=== PATIENT | male | born 1985 | race Caucasian/White ===

== ENCOUNTER 2024-09-04 05:14 | Inpatient (IN) | payer OTHER, SELFPAY ==
[2024-09-04] VITALS (8 sets, daily range): BP systolic 103–118; BP diastolic 67–81; PULSE 66–90; RESP 12–19; TEMP 36.6–37.4; O2SAT 95–97; BMI 32.1
--- NOTE | ~2024-09-04 | CT_ITS ---
CT of the Abdomen and Pelvis: Indication: Abdominal pain Technique: 2.5 mm axial scans were obtained through the abdomen and pelvis following intravenous adm inistration of 100 cc of Omnipaque 350. Dose reduction technique was used on this scan by utilizing a utomated exposure control and iterative reconstruction technique. The dose-length product (DLP) was 1 396.16 mGy-cm. Findings: Scans through the lung bases are unremarkable. The liver, spleen, pancreas, gallbladder, adrenals and kidneys are within normal limits. No evidence of aortic aneurysm. No lymphadenopathy. There is wall thickening and inflammatory change of the sigmoid colon, compatible with acute divertic ulitis. Possible tiny microperforation versus mildly prominent diverticulum. No abscess evident. No b owel obstruction. Images through the pelvis were performed. Urinary bladder unremarkable. No pelvic mass seen. No ascit es. Impression: Acute sigmoid diverticulitis with possible contained microperforation adjacent to the colon versus mi ld prominent diverticulum. No abscess. Reviewed, dictated and finalized at [facility]. 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 No abscess.
--- NOTE | 2024-09-04 05:49 | ED.GENADULT ---
HPI - General Adult General Chief complaint: Abdominal Pain Stated complaint: Lower abdominal pain Time Seen by Provider: 09/04/24 05:37 History of Present Illness HPI narrative: Patient 38 and 1 presents emergency department with chief complaint of abdominal pain. Patient reports the pain began yesterday reports some lower quadrants of his abdomen the patient reports feels like a cramping like pain in sharp as well the patient denies nausea denies vomiting denies diarrhea reports no prior surgical history of the abdomen the patient reports no other medical conditions. Related Data Home Medications Medication Instructions Recorded Confirmed acetaminophen 325 mg capsule 325 mg PO Q6H PRN 11/12/19 (Tylenol) ibuprofen 200 mg tablet (Advil) 200 mg PO Q6H PRN 11/12/19 Allergies Allergy/AdvReac Type Severity Reaction Status Date / Time No Known Allergies Allergy Unverified 01/20/20 12:16 Review of Systems Review of Systems: A 10 system review of systems was completed on the patient and is negative except for what is stated in the HPI. Nursing and ancillary documentation was reviewed. [facility] Past Medical History Medical History Broken arm Broken legs Chronic pain Hypertriglyceridemia Family History Family History Mother Patient's mother is in good health Father Patient's father is in good health Social History Social History Smoking packs per day: 1 Smoking cigarettes per day: 20.0 Smoking status: Current every day smoker Second hand tobacco smoke exposure: No Alcohol intake: never Substance use: never Exam Narrative: GENERAL: Well-appearing, well-nourished, and in no acute distress. HEAD: Normocephalic, atraumatic. EYES: PERRLA and EOMI. ENT: Nares clear, no rhinorrhea or epistaxis. Mucous membranes moist. NECK: Supple. CHEST: Clear to auscultation. No respiratory distress. HEART: Regular rate and rhythm. No murmur heard. Normal peripheral pulses. ABDOMEN: Soft, Tenderness to palpation in bilateral lower quadrants, nondistended, normal active bowel sounds. EXTREMITIES: Normal range of motion. No edema. SKIN: Warm, dry, no rash. NEURO: No focal deficits. Alert and oriented x3. PSYCH: Normal mood and affect. Course Vital Signs Vital signs: Vital Signs Temperature 36.6 C 09/04/24 05:28 Pulse Rate 72 09/04/24 05:28 Respiratory Rate 12 09/04/24 05:28 Blood Pressure 118/81 09/04/24 05:28 Pulse Oximetry 97 09/04/24 05:28 Oxygen Delivery Room Air 09/04/24 05:28 Temperature 36.6 C 09/04/24 05:28 Pulse Rate 72 09/04/24 05:28 Respiratory Rate 12 09/04/24 05:28 Blood Pressure 118/81 09/04/24 05:28 Pulse Oximetry 97 09/04/24 05:28 Oxygen Delivery Room Air 09/04/24 05:28 Medical Decision Making MDM Narrative Medical decision making narrative: differential diagnosis includes intra-abdominal infection, diverticulitis, colitis, appendicitis CT scan of the abdomen pelvis showed evidence of acute diverticulitis with potential localized perforation laboratory studies showed a white count of 16.8 electrolytes are within normal limits case was discussed with Dr. Carey who will consult on the patient and the patient is be kept NPO Vital Signs Vital Signs: Vital Signs Temperature 36.6 C 09/04/24 05:28 Pulse Rate 72 09/04/24 05:28 Respiratory Rate 12 09/04/24 05:28 Blood Pressure 118/81 09/04/24 05:28 Pulse Oximetry 97 09/04/24 05:28 Oxygen Delivery Room Air 09/04/24 05:28 Temperature 36.6 C 09/04/24 05:28 Pulse Rate 72 09/04/24 05:28 Respiratory Rate 12 09/04/24 05:28 Blood Pressure 118/81 09/04/24 05:28 Pulse Oximetry 97 09/04/24 05:28 Oxygen Delivery Room Air 09/04/24 05:28 Lab Data 09/04/24 05:42 09/04/24 05:42 Labs: Lab Results 09/04/24 Range/Units 05:42 WBC 16.8 H (4.5-10.0) K/mm3 RBC 5.30 (4.6-6.20) M/mm3 Hgb 16.3 (14.0-18.0) g/dL Hct 45.9 (42.0-52.0) % MCV 86.6 (80-100) fl MCH 30.8 (26-34) pg MCHC 35.5 (32-36) g/dl RDW 12.2 (11.5-14.5) % Plt Count 249 (150-375) k/mm3 MPV 10.3 (7.4-10.4) fl Immature Gran % (Auto) 0.4 (0-0.5) % Neut % (Auto) 77.9 H (45.5-73.1) % Lymph % (Auto) 12.1 L (18.3-44.2) % [place] % (Auto) 9.0 H (2.6-8.5) % Eos % (Auto) 0.1 (0-4.4) % Baso % (Auto) 0.5 (0.2-1.2) % Lymph # (Auto) 2.02 (0.9-3.2) K/mm3 [place] # (Auto) 1.5 H (0.1-0.6) K/mm3 Eos # (Auto) 0.0 (0-0.3) K/mm3 Baso # (Auto) 0.1 (0.0-0.1) K/mm3 Abs Immat Gran (auto) 0.06 H (0.00-0.031) K/mm3 Absolute Neuts (auto) 13.1 H (1.3-6.7) K/mm3 Absolute Nucleated RBC 0.000 (0.0-0.012) K/mm3 Nucleated RBC % 0.0 (0.0-0.2) % Sodium 139 (137-145) mmol/L Potassium 4.0 (3.4-5.0) mmol/L Chloride 103 (98-107) mmol/L Carbon Dioxide 25 (22-30) mmol/L Anion Gap 11 (4-12) mmol/L BUN 14 (9-20) mg/dL Creatinine 0.80 (0.7-1.3) mg/dL Estim Creat Clear Calc 145 ml/min Estimated GFR > 60 (59 - ) Glucose 120 H (65-110) mg/dL Calcium 9.4 (8.4-10.2) mg/dL Total Bilirubin 1.4 H (0.2-1.3) mg/dL AST 23 (17-59) U/L ALT 34 (6-50) U/L Alkaline Phosphatase 71 (38-126) U/L Total Protein 9.0 H (6.3-8.2) g/dL Albumin 5.0 (3.5-5.1) g/dL Lipase 35 (23-300) U/L Urine Color Yellow (Yellow) Urine Appearance Clear (Clear) Urine pH 5.0 (5.0-9.0) Ur Specific [place] 1.026 (1.001-1.035) Urine Protein Trace (Negative) mg/dL Urine Glucose (UA) Negative (Negative) mg/dL Urine Ketones Trace H (Negative) mg/dL Ur Blood (Man) Trace (Negative) Urine Nitrate Negative (Negative) Urine Bilirubin Negative (Negative) Urine Urobilinogen 1.0 (<2.0) mg/dL Leukocyte Esterase Rfl Negative (Negative) DIANNE/UL Urine RBC 0-2 (0-2) /hpf Urine WBC 0-5 (0-3) /hpf Ur Squamous Epith Cells Occasional (Few) /hpf Urine Bacteria None seen /hpf Urine Casts 0-2 Discharge Plan Discharge Clinical Impression: Acute diverticulitis Patient Disposition: Still a Patient Condition: Stable Instructions: Antibiotic Form Prescriptions: No Action acetaminophen [Tylenol] 325 mg capsule 325 mg PO Q6H PRN ibuprofen [Advil] 200 mg tablet 200 mg PO Q6H PRN fluticasone propionate [Flonase Allergy Relief] 50 mcg/actuation spray,suspension 1 spray NASAL Q12H Qty: 18.2 1RF Rx Instructions: administer into each nostril Follow-up/Referrals: Chris Grace DO [Primary Care Provider] - Time of Disposition: 06:58
[2024-09-04 05:58] LABS: Basophils Absolute Auto 0.1 K/mm3 (0.0-0.1); Basophils Percent Auto 0.5 % (0.2-1.2); Eosinophils Percent Auto 0.1 % (0-4.4); Hematocrit 45.9 % (42.0-52.0); Hemoglobin 16.3 g/dL (14.0-18.0); Immature Granulocyte Absolute 0.06 K/mm3 (0.00-0.031); Immature Granulocyte Percent A 0.4 % (0-0.5); Lymphocytes Absolute Auto 2.02 K/mm3 (0.9-3.2); Lymphocytes Percent Auto 12.1 % (18.3-44.2); Mean Corpuscular HGB Conc 35.5 g/dl (32-36); Mean Corpuscular Hemoglobin 30.8 pg (26-34); Mean Corpuscular Volume 86.6 fl (80-100); Mean Platelet Volume 10.3 fl (7.4-10.4); Monocytes Absolute Auto 1.5 K/mm3 (0.1-0.6); Neutrophils Absolute Auto 13.1 K/mm3 (1.3-6.7); Neutrophils Percent Auto 77.9 % (45.5-73.1); Platelet Count Result 249 k/mm3 (150-375); Red Cell Distribution Width 12.2 % (11.5-14.5); White Blood Count 16.8 K/mm3 (4.5-10.0)
[2024-09-04 06:02] LABS: Add Urine Microscopic? YES; Appearance Urine Clear (Clear); Bacteria Urine None Seen /hpf; Bilirubin Urine Negative (Negative); Blood Urine Trace (Negative); Color Urine Yellow (Yellow); Glucose Urine UA Negative (Negative); Ketones Urine Trace mg/dL (Negative); Leukocyte Esterase Ur Negative LEU/UL (Negative); Nitrate Urine Negative (Negative); Non Pathogenic Casts 0-2; Protein Urine Trace mg/dL (Negative); RBC Urine 0-2 /hpf (0-2); Specific Grav Ur 1.026 (1.001-1.035); Squamous Epithelial Cell Urine Occasional /hpf (Few); WBC Urine 0-5 /hpf (0-3)
[2024-09-04 06:13] LABS: Alanine Aminotransferase 34 U/L (6-50); Alkaline Phosphatase 71 U/L (38-126); Anion Gap 11 mmol/L (4-12); Aspartate Amino Transferase 23 U/L (17-59); Bilirubin,Total 1.4 mg/dL (0.2-1.3); Blood Urea Nitrogen 14 mg/dL (9-20); Calcium 9.4 mg/dL (8.4-10.2); Carbon Dioxide 25 mmol/L (22-30); Chloride 103 mmol/L (98-107); Estimated CRCL calculation 145 ml/min; Estimated Glomerular Filt Rate > 60; Glucose 120 mg/dL (65-110); Lipase 35 U/L (23-300); Sodium 139 mmol/L (137-145)
[2024-09-04] MEDS: PIPERACILLN/TAZ 3.375GM/NS50ML 3.375 GM/50 ML BAG IVPB ×4 (07:39→23:35)
--- NOTE | 2024-09-04 08:49 | P.HP_ITS ---
H&P: HPI History of Present Illness Date/Time: 09/04/24 08:49 Chief Complaint: ABDOMEN PAIN Narrative: [age] years old gentleman without significant past medical history present ED with a chief complaint of abdomen pain. Patient started having acute abdomen pain yesterday, locating in left lower quadrant, is cramping pain. Patient denies nausea vomiting diarrhea. Patient also denies fever, chills, chest pain, cough, shortness of breath, headache, focal weakness. Patient came to ED for evaluation treatment. Upon arrival to ED, patient is afebrile, blood pressure stable, no O2 desaturation on room air. Labs showed leukocytosis white blood cell 16,800. Chemistry unremarkable. CT abdomen pelvis showed acute sigmoid diverticulitis with possible microperforation. Patient received Zosyn in the ED, your physician also consulted general surgeon. We admit patient for further evaluation and management Review of Systems Review of Systems: ROS negative except above PMFSH Past Medical History Medical History Broken arm Broken legs Chronic pain Hypertriglyceridemia Family History Family History Mother Patient's mother is in good health Father Patient's father is in good health Social History Social History Smoking packs per day: 1 Smoking cigarettes per day: 20.0 Smoking status: Current every day smoker Second hand tobacco smoke exposure: No Alcohol intake: never Substance use: never Do You Feel Safe in your Home?: Yes Lack of Transportation: No Lack of Food: Never True Current Housing: I Have Housing Concerned About Future Housing: No Difficulty Paying Gas/Electric Bills: No Difficulty Paying for Meds: No Currently Unemployed: No Education: Trade/Vocational Certificate Difficulty w/ Childcare or Family Care: No Spiritual care concerns: No Meds Home Medications and Allergies Home Medications Medication Instructions Recorded Confirmed Type acetaminophen 325 mg capsule 325 mg PO Q6H PRN pain 11/12/19 09/04/24 History (Tylenol) ibuprofen 200 mg tablet (Advil) 200 mg PO Q6H PRN pain 11/12/19 09/04/24 History fluticasone propionate 50 1 spray intranasal Q12H #18.2 mL 05/13/20 09/04/24 Rx mcg/actuation nasal spray,suspension (Flonase Allergy Relief) Allergies Allergy/AdvReac Type Severity Reaction Status Date / Time No Known Allergies Allergy Unverified 01/20/20 12:16 Vital Signs Vital Signs - 24 hr 09/04/24 05:28 09/04/24 07:46 09/04/24 07:46 Temperature 97.8 F Pulse Rate 72 83 Respiratory Rate 12 16 Blood Pressure 118/81 109/70 109/70 Pulse Oximetry 97 96 96 Oxygen Delivery Room Air 09/04/24 07:47 09/04/24 08:00 09/04/24 08:15 Temperature Pulse Rate 90 Respiratory Rate 15 Blood Pressure Pulse Oximetry 96 95 96 Oxygen Delivery Exam Narrative: GENERAL: Pleasant, in no acute distress. Well-nourished. - EYES: EOMI. Anicteric. - HENT: Moist mucous membranes. - LUNGS: Clear to auscultation bilateral ly, no wheezing, rhonchi, or rales. - CARDIOVASCULAR: Regular rate and rhyth m. No murmur. No JVD. - ABDOMEN: Soft, left lower quadrant te nder and non-distended. No palpable masses. - EXTREMITIES: No edema. Peripheral puls es 2+. Non-tender. - NEUROLOGIC: No focal neurological defi cits. CN II-XII grossly intact. - PSYCHIATRIC: Awake, Alert and oriented x 3. Appropriate mood and affect. - SKIN: No rashes or lesions. Warm. - LYMPH: No cervical lymphadenopathy. H&P: Results Labs Labs: Short CBC 09/04/24 Range/Units 05:42 WBC 16.8 H (4.5-10.0) K/mm3 Hgb 16.3 (14.0-18.0) g/dL Hct 45.9 (42.0-52.0) % Plt Count 249 (150-375) k/mm3 [facility] 09/04/24 05:42 Sodium 139 Potassium 4.0 Chloride 103 Carbon Dioxide 25 BUN 14 Creatinine 0.80 Glucose 120 H Calcium 9.4 Liver Function 09/04/24 Range/Units 05:42 Total Bilirubin 1.4 H (0.2-1.3) mg/dL AST 23 (17-59) U/L ALT 34 (6-50) U/L Alkaline Phosphatase 71 (38-126) U/L Albumin 5.0 (3.5-5.1) g/dL Urine 09/04/24 Range/Units 05:42 Urine Color Yellow (Yellow) Urine Appearance Clear (Clear) Urine pH 5.0 (5.0-9.0) Ur Specific [place] 1.026 (1.001-1.035) Urine Protein Trace (Negative) mg/dL Urine Glucose (UA) Negative (Negative) mg/dL Assessment and Plan Assessment and plan (1) Acute diverticulitis: Code(s): K57.92 - Diverticulitis of intestine, part unspecified, without perforation or abscess without bleeding Status: Acute Plan Acute sigmoid diverticulitis with microperforation Patient has been having left lower quadrant pain since yesterday. Patient has sudden onset abdomen pain, denies nausea vomiting Patient has leukocytosis CT abdomen pelvis showed acute sigmoid diverticulitis with micro perforation Keep patient p.o. Start D5 lactated Ringer 125 mL/hour Received Zosyn in the ED, continue Zosyn IV Consult general surgeon, follow recommendation Optimize pain management Follow-up CBC BMP, correct electrolyte abnormality accordingly Hospitalist MIPS Advance Care Plan I have confirmed that the patient's Advanced Care Plan is present, code status is documented, or surrogate decision maker is listed in patient medical record.: Yes Medication Reconciliation I have utilized all available resources to obtain, update and review the patients current medications (includes all prescriptions, OTC, herbals, cannabis, and nutritional supplements).: Yes
--- NOTE | 2024-09-04 10:46 | ADMGEN ---
This patient, Trip Flores, was admitted to [facility] Surg Room 315-01. Patient/family oriented to hospital policies and general routines including ID bracelet, bed and alarms, visiting hours, pain management, procedures, bathroom and other care routines, personal items, smoking policy, room service/diet, and visiting hours. Information on how to activate the Rapid Response Team has been discussed. Patient/Family are encouraged to report perceived risks to care and to ask questions if they do not understand what they are told or what they should do.
--- NOTE | 2024-09-04 12:10 | WPDCN ---
Assessment and Plan Assessment and plan (1) Acute diverticulitis: Code(s): K57.92 - Diverticulitis of intestine, part unspecified, without perforation or abscess without bleeding Status: Acute Assessment and Plan: Acute sigmoid diverticulitis with micro perforation. There is no pelvic abscess. This is 1st episode of diverticulitis. Patient will likely improve with IV antibiotic therapy and relative bowel rest for couple days. He does not have acute surgical abdomen. Soon he does get better with non operative management I would recommend he get a colonoscopy done and about 4 to 6 weeks to make sure there is no underlying neoplasm causing the inflammation of the colon and micro perforation. Continue supportive management. Continue IV antibiotics. Repeat CBC tomorrow. HPI Data of Consult Date/Time: 09/04/24 12:10 Requesting Physician: Marissa Myers MD Primary Care Provider: Chris Grace, Consult Narrative Reason for consult: Acute sigmoid diverticulitis with micro perforation Narrative: Trip Flores is a 38 year old male admitted to the hospital with a 12hour history of sudden onset of lower abdominal pain. Small bowel movement yesterday. He never had pain like this in the past. Workup in the emergency room with a CT scan abdomen pelvis showed acute sigmoid diverticulitis with possible microperforation. No pelvic abscess was seen. White blood count was 16,000. He was not tachycardic and not febrile. He has never had a colonoscopy in the past. He did have a THD procedure done in 2018 for symptomatic hemorrhoids which I did here at [facility]. He has never had colonoscopy in the past. Today his pain is a little better. He is has no nausea or vomiting. Review of Systems Review of Systems: The remainder of the review of systems to include constitutional, HEENT, cardiovascular, respiratory, GI, , integumentary, musculoskeletal, endocrine, immunologic, hematologic, psychiatric, and neurologic are all negative except for which is mentioned above in the HPI. [facility] Past Medical History Medical History Broken arm Broken legs Chronic pain Hypertriglyceridemia Family History Family History Mother Patient's mother is in good health Father Patient's father is in good health Social History Social History Smoking packs per day: 1 Smoking cigarettes per day: 20.0 Smoking status: Current every day smoker Second hand tobacco smoke exposure: No Alcohol intake: never Substance use: never Do You Feel Safe in your Home?: Yes Lack of Transportation: No Lack of Food: Never True Current Housing: I Have Housing Concerned About Future Housing: No Difficulty Paying Gas/Electric Bills: No Difficulty Paying for Meds: No Currently Unemployed: No Education: Trade/Vocational Certificate Difficulty w/ Childcare or Family Care: No Spiritual care concerns: No Meds Home Medications and Allergies Home Medications Medication Instructions Recorded Confirmed Type acetaminophen 325 mg capsule 325 mg PO Q6H PRN pain 11/12/19 09/04/24 History (Tylenol) ibuprofen 200 mg tablet (Advil) 200 mg PO Q6H PRN pain 11/12/19 09/04/24 History fluticasone propionate 50 1 spray intranasal Q12H #18.2 mL 05/13/20 09/04/24 Rx mcg/actuation nasal spray,suspension (Flonase Allergy Relief) Allergies Allergy/AdvReac Type Severity Reaction Status Date / Time No Known Allergies Allergy Unverified 01/20/20 12:16 Vital Signs Vital Signs - 24 hr 09/04/24 05:28 09/04/24 07:46 09/04/24 07:46 Temperature 36.6 C Pulse Rate 72 83 Respiratory Rate 12 16 Blood Pressure 118/81 109/70 109/70 Pulse Oximetry 97 96 96 Oxygen Delivery Room Air 09/04/24 07:47 09/04/24 08:00 09/04/24 08:15 Temperature Pulse Rate 90 Respiratory Rate 15 Blood Pressure Pulse Oximetry 96 95 96 Oxygen Delivery Exam Const: General: comfortable and no acute distress HENMT: Ears: TM's normal bilaterally Face/Nose/Sinus: Normal nares present Mouth: Yes moist mucous membranes Eyes: General: appearance normal, both eyes and all related structures Sclera: sclerae normal Pupils: Equal, round and reactive pupils present EOM: EOMs intact bilaterally Neck: Neck: supple and no JVD Resp: Effort & Inspection: normal respiratory effort Auscultation: clear to auscultation bilaterally Cardio: Rate: regular rate Rhythm: regular rhythm GI: Other: Abdomen is soft and nondistended. Has a very small umbilical hernia which is easily reducible. Defect is less than 1cm in diameter. He also has mild tenderness to palpation in the suprapubic region of the abdomen. There is no rebound tenderness or guarding. No masses appreciated. Skin: General skin exam: normal color and no rashes or lesions noted Neuro: General: gait normal Speech: normal speech Motor exam (neuro): 5/5 motor strength present throughout Sensory Exam: normal sensation Extrem: General: normal to inspection Psych: Mental Status: mental status grossly normal Affect: normal affect Results Labs 09/04/24 05:42 09/04/24 05:42 Labs: Short CBC 09/04/24 Range/Units 05:42 WBC 16.8 H (4.5-10.0) K/mm3 Hgb 16.3 (14.0-18.0) g/dL Hct 45.9 (42.0-52.0) % Plt Count 249 (150-375) k/mm3 BMP 09/04/24 05:42 Sodium 139 Potassium 4.0 Chloride 103 Carbon Dioxide 25 BUN 14 Creatinine 0.80 Glucose 120 H Calcium 9.4 Liver Function 09/04/24 Range/Units 05:42 Total Bilirubin 1.4 H (0.2-1.3) mg/dL AST 23 (17-59) U/L ALT 34 (6-50) U/L Alkaline Phosphatase 71 (38-126) U/L Albumin 5.0 (3.5-5.1) g/dL Urine 09/04/24 Range/Units 05:42 Urine Color Yellow (Yellow) Urine Appearance Clear (Clear) Urine pH 5.0 (5.0-9.0) Ur Specific [place] 1.026 (1.001-1.035) Urine Protein Trace (Negative) mg/dL Urine Glucose (UA) Negative (Negative) mg/dL Imaging Radiologist's impression: Patient: Trip Flores : 1985 MR#: [id number] Age: 38 Acct:[id number] Loc: [facility] ADM Date: 09/04/24Attending Dr: Ordering Physician: Royer Hensley MD Date of Service: 09/04/24 Procedure(s): CT abdomen pelvis w con Accession Number(s): [id number] cc: Royer Hensley MD; Chris Grace DO~ CT of the Abdomen and Pelvis: Indication: Abdominal pain Technique: 2.5 mm axial scans were obtained through the abdomen and pelvis following intravenous administration of 100 cc of Omnipaque 350. Dose reduction technique was used on this scan by utilizing automated exposure control and iterative reconstruction technique. The dose-length product (DLP) was 1396.16 mGy-cm. Findings: Scans through the lung bases are unremarkable. The liver, spleen, pancreas, gallbladder, adrenals and kidneys are within normal limits. No evidence of aortic aneurysm. No lymphadenopathy. There is wall thickening and inflammatory change of the sigmoid colon, compatible with acute diverticulitis. Possible tiny microperforation versus mildly prominent diverticulum. No abscess evident. No bowel obstruction. Images through the pelvis were performed. Urinary bladder unremarkable. No pelvic mass seen. No ascites. Impression: Acute sigmoid diverticulitis with possible contained microperforation adjacent to the colon versus mild prominent diverticulum. No abscess. Reviewed, dictated and finalized at [facility]. [employer]
[2024-09-04] MEDS: LACTATED RINGERS 1,000 ML 125 ML IV CONT (12:55)
[2024-09-04] MEDS: MORPHINE SULFATE (*CRX) 4 MG/ML INJ IV PUSH (12:55)
[2024-09-04] MEDS: DEXTROSE 5%/LACTATED RINGERS 1,000 ML 125 ML IV CONT (17:21)
[2024-09-04] MEDS: ONDANSETRON INJ 4 MG/2 ML VIAL IV PUSH (17:26)
[2024-09-05] MEDS: DEXTROSE 5%/LACTATED RINGERS 1,000 ML 125 ML IV CONT ×2 (05:19→11:10)
[2024-09-05] MEDS: PIPERACILLN/TAZ 3.375GM/NS50ML 3.375 GM/50 ML BAG IVPB ×3 (05:19→17:20)
[2024-09-05 05:47] VITALS: BP 110/78; PULSE 80; RESP 16; TEMP 36.9; O2SAT 96
[2024-09-05 08:44] LABS: Basophils Absolute Auto 0.1 K/mm3 (0.0-0.1); Basophils Percent Auto 0.8 % (0.2-1.2); Eosinophils Absolute Auto 0.1 K/mm3 (0-0.3); Eosinophils Percent Auto 1.1 % (0-4.4); Hematocrit 44.2 % (42.0-52.0); Hemoglobin 15.3 g/dL (14.0-18.0); Immature Granulocyte Absolute 0.04 K/mm3 (0.00-0.031); Immature Granulocyte Percent A 0.4 % (0-0.5); Lymphocytes Absolute Auto 1.93 K/mm3 (0.9-3.2); Lymphocytes Percent Auto 17.4 % (18.3-44.2); Mean Corpuscular HGB Conc 34.6 g/dl (32-36); Mean Corpuscular Hemoglobin 30.7 pg (26-34); Mean Corpuscular Volume 88.6 fl (80-100); Mean Platelet Volume 9.9 fl (7.4-10.4); Monocytes Absolute Auto 1.3 K/mm3 (0.1-0.6); Monocytes Percent Auto 11.3 % (2.6-8.5); Neutrophils Absolute Auto 7.7 K/mm3 (1.3-6.7); Platelet Count Result 225 k/mm3 (150-375); Red Blood Count 4.99 M/mm3 (4.6-6.20); Red Cell Distribution Width 12.2 % (11.5-14.5); White Blood Count 11.1 K/mm3 (4.5-10.0)
[2024-09-05 08:47] VITALS: O2SAT 96
[2024-09-05 08:55] LABS: Anion Gap 7 mmol/L (4-12); Blood Urea Nitrogen 9 mg/dL (9-20); Calcium 9.2 mg/dL (8.4-10.2); Carbon Dioxide 32 mmol/L (22-30); Chloride 99 mmol/L (98-107); Estimated CRCL calculation 164 ml/min; Estimated Glomerular Filt Rate > 60; Glucose 116 mg/dL (65-110); Potassium 4.3 mmol/L (3.4-5.0); Sodium 138 mmol/L (137-145)
--- NOTE | 2024-09-05 10:52 | WPDPN ---
Progress Note: A&P Assessment and Plan (1) Acute diverticulitis: Code(s): K57.92 - Diverticulitis of intestine, part unspecified, without perforation or abscess without bleeding Status: Acute Assessment and Plan: Improving with non operative management with IV antibiotics and NPO. His white blood count is down to 11,000 today and his abdominal exam is much improved. We will go ahead start him on some clear liquids today. Continue with IV antibiotics for now. Hopefully can advance his diet further tomorrow and probably home this weekend with a additional course of oral antibiotics at home. He has responded non operative management and I do not think he is going to need any acute surgical management at this time. Subjective Date/time seen: 09/05/24 10:52 Interval history: Patient feels better today. Less lower abdominal pain. No nausea or vomiting. He is passing some flatus but had no bowel movement yet. [place] blood count was [address] yesterday. Is down to 11,000 today. No fever or tachycardia. Exam GI: Other: Abdomen is soft and nondistended. Mild tenderness to palpation the suprapubic region abdomen. No guarding or rebound tenderness. Objective Data Vital Signs Vital Signs: Vital Signs - 24 hr 09/04/24 14:00 09/04/24 15:03 09/04/24 20:40 Temperature 37.4 C 37.4 C Pulse Rate 81 81 Respiratory Rate 16 16 Blood Pressure 103/67 110/75 Pulse Oximetry 96 97 Oxygen Delivery Room Air Fraction of Inspired Oxygen 09/04/24 20:00 09/04/24 22:55 09/05/24 05:47 Temperature 36.9 C Pulse Rate 66 80 Respiratory Rate 19 16 Blood Pressure 110/78 Pulse Oximetry 95 96 Oxygen Delivery Room Air CPAP Fraction of Inspired Oxygen 09/05/24 08:47 09/05/24 08:10 Temperature Pulse Rate Respiratory Rate Blood Pressure Pulse Oximetry 96 Oxygen Delivery Room Air Room Air Fraction of Inspired Oxygen 21 Intake/Output Intake/Output: Intake & Output 09/02/24 09/03/24 09/04/24 09/05/24 23:59 23:59 23:59 23:59 Intake Total 150 2110 Balance 150 2110 Meds/Results Medications: Active Medications Generic Name Dose Route Start Last Admin Trade Name Freq PRN Reason Stop Dose Admin Piperacillin/Tazobactam/Dextrose 3.375 gm in 50 mls @ 100 mls/hr 09/04/24 12:00 09/05/24 05:19 Zosyn 3.375 Gm/Ns 50 Ml IVPB 100 mls/hr Q6H TOMMIE Administration Dextrose/Lactated Ringer's 1,000 mls @ 125 mls/hr 09/04/24 09:00 09/05/24 05:19 Dextrose 5%/Lactated Ringers IV CONT 125 mls/hr .Q8H TOMMIE Administration Morphine Sulfate 4 mg 09/04/24 07:17 09/04/24 12:55 Morphine Sulfate (*Crx) 4 Mg/Ml Inj IV PUSH 4 mg Q2H PRN Administration Pain Rated 7-10 Ondansetron HCl 4 mg 09/04/24 07:17 09/04/24 17:26 Ondansetron Inj 4 Mg/2 Ml Vial IV PUSH 4 mg Q4H PRN Administration Nausea Radiology Results: ITS Impressions Abdomen/Pelvis CT 09/04/24 06:38 Impression: Acute sigmoid diverticulitis with possible contained microperforation adjacent to the colon versus mild prominent diverticulum. No abscess. Labs Labs: Laboratory Results - last 24 hr 09/05/24 08:37 WBC 11.1 H RBC 4.99 Hgb 15.3 Hct 44.2 MCV 88.6 MCH 30.7 MCHC 34.6 RDW 12.2 Plt Count 225 MPV 9.9 Immature Gran % (Auto) 0.4 Neut % (Auto) 69.0 Lymph % (Auto) 17.4 L [place] % (Auto) 11.3 H Eos % (Auto) 1.1 Baso % (Auto) 0.8 Lymph # (Auto) 1.93 [place] # (Auto) 1.3 H Eos # (Auto) 0.1 Baso # (Auto) 0.1 Abs Immat Gran (auto) 0.04 H Absolute Neuts (auto) 7.7 H Absolute Nucleated RBC 0.000 Nucleated RBC % 0.0 Sodium 138 Potassium 4.3 Chloride 99 Carbon Dioxide 32 H Anion Gap 7 BUN 9 D Creatinine 0.70 Estim Creat Clear Calc 164 Estimated GFR > 60 Glucose 116 H Calcium 9.2
--- NOTE | 2024-09-05 11:53 | PM.IMPN ---
Progress Note: A&P Assessment and Plan (1) Acute diverticulitis: Code(s): K57.92 - Diverticulitis of intestine, part unspecified, without perforation or abscess without bleeding Status: Acute Plan Acute sigmoid diverticulitis with microperforation Patient has been having left lower quadrant pain since yesterday. Patient has sudden onset abdomen pain, denies nausea vomiting Patient has leukocytosis continues to improve non operative management CT abdomen pelvis showed acute sigmoid diverticulitis with micro perforation On D5 lactated Ringer 125 mL/hour Received Zosyn in the ED, continue Zosyn IV Consult general surgeon, follow recommendation Optimize pain management Follow-up CBC BMP, correct electrolyte abnormality accordingly Subjective Date/time seen: 09/05/24 11:53 Interval history: No overnight events. Feels better. Very mild abdominal discomfort in the lower abdomen. No nausea vomiting. Has not required IV pain medication since yesterday Review of Systems Review of Systems: All systems reviewed & are unremarkable except as noted in HPI and below Exam Narrative: GENERAL: Pleasant, in no acute distress. Well-nourished. - EYES: EOMI. Anicteric. - HENT: Moist mucous membranes. - LUNGS: Clear to auscultation bilaterally, no wheezing, rhonchi, or rales. - CARDIOVASCULAR: Regular rate and rhythm. No murmur. No JVD. - ABDOMEN: Soft, left lower quadrant tender mild and non-distended. No palpable masses. - EXTREMITIES: No edema. Peripheral pulses 2+. Non-tender. - NEUROLOGIC: No focal neurological deficits. CN II-XII grossly intact. - PSYCHIATRIC: Awake, Alert and oriented x 3. Appropriate mood and affect. - SKIN: No rashes or lesions. Warm. - LYMPH: No cervical lymphadenopathy. Objective Data Vital Signs Vital Signs: Vital Signs - 24 hr 09/04/24 14:00 09/04/24 15:03 09/04/24 20:40 Temperature 99.4 F 99.4 F Pulse Rate 81 81 Respiratory Rate 16 16 Blood Pressure 103/67 110/75 Pulse Oximetry 96 97 Oxygen Delivery Room Air Fraction of Inspired Oxygen 09/04/24 20:00 09/04/24 22:55 09/05/24 05:47 Temperature 98.5 F Pulse Rate 66 80 Respiratory Rate 19 16 Blood Pressure 110/78 Pulse Oximetry 95 96 Oxygen Delivery Room Air CPAP Fraction of Inspired Oxygen 09/05/24 08:47 09/05/24 08:10 Temperature Pulse Rate Respiratory Rate Blood Pressure Pulse Oximetry 96 Oxygen Delivery Room Air Room Air Fraction of Inspired Oxygen 21 Intake/Output Intake/Output: Intake & Output 09/02/24 09/03/24 09/04/24 09/05/24 23:59 23:59 23:59 23:59 Intake Total 150 2891.3 Balance 150 2891.3 Meds/Results Medications: Active Medications Generic Name Dose Route Start Last Admin Trade Name Freq PRN Reason Stop Dose Admin Piperacillin/Tazobactam/Dextrose 3.375 gm in 50 mls @ 100 mls/hr 09/04/24 12:00 09/05/24 11:39 Zosyn 3.375 Gm/Ns 50 Ml IVPB 100 mls/hr Q6H TOMMIE Administration Dextrose/Lactated Ringer's 1,000 mls @ 125 mls/hr 09/04/24 09:00 09/05/24 11:10 Dextrose 5%/Lactated Ringers IV CONT 125 mls/hr .Q8H TOMMIE Administration Morphine Sulfate 4 mg 09/04/24 07:17 09/04/24 12:55 Morphine Sulfate (*Crx) 4 Mg/Ml Inj IV PUSH 4 mg Q2H PRN Administration Pain Rated 7-10 Ondansetron HCl 4 mg 09/04/24 07:17 09/04/24 17:26 Ondansetron Inj 4 Mg/2 Ml Vial IV PUSH 4 mg Q4H PRN Administration Nausea Radiology Results: ITS Impressions Abdomen/Pelvis CT 09/04/24 06:38 Impression: Acute sigmoid diverticulitis with possible contained microperforation adjacent to the colon versus mild prominent diverticulum. No abscess. Labs Labs: Laboratory Results - last 24 hr 09/05/24 08:37 WBC 11.1 H RBC 4.99 Hgb 15.3 Hct 44.2 MCV 88.6 MCH 30.7 MCHC 34.6 RDW 12.2 Plt Count 225 MPV 9.9 Immature Gran % (Auto) 0.4 Neut % (Auto) 69.0 Lymph % (Auto) 17.4 L [place] % (Auto) 11.3 H Eos % (Auto) 1.1 Baso % (Auto) 0.8 Lymph # (Auto) 1.93 [place] # (Auto) 1.3 H Eos # (Auto) 0.1 Baso # (Auto) 0.1 Abs Immat Gran (auto) 0.04 H Absolute Neuts (auto) 7.7 H Absolute Nucleated RBC 0.000 Nucleated RBC % 0.0 Sodium 138 Potassium 4.3 Chloride 99 Carbon Dioxide 32 H Anion Gap 7 BUN 9 D Creatinine 0.70 Estim Creat Clear Calc 164 Estimated GFR > 60 Glucose 116 H Calcium 9.2
[2024-09-05 14:00] VITALS: BP 128/81; PULSE 96; RESP 18; TEMP 36.6; O2SAT 80
[2024-09-05 22:00] VITALS: BP 125/86; PULSE 73; RESP 18; TEMP 36.7; O2SAT 97
[2024-09-06] MEDS: PIPERACILLN/TAZ 3.375GM/NS50ML 3.375 GM/50 ML BAG IVPB ×5 (00:05→23:19)
[2024-09-06] MEDS: DEXTROSE 5%/LACTATED RINGERS 1,000 ML 75 ML IV CONT (00:05)
[2024-09-06 06:00] VITALS: BP 119/80; PULSE 66; RESP 16; O2SAT 97
[2024-09-06 06:53] LABS: Basophils Absolute Auto 0.1 K/mm3 (0.0-0.1); Basophils Percent Auto 0.8 % (0.2-1.2); Eosinophils Absolute Auto 0.2 K/mm3 (0-0.3); Eosinophils Percent Auto 2.1 % (0-4.4); Hematocrit 45.1 % (42.0-52.0); Hemoglobin 15.4 g/dL (14.0-18.0); Immature Granulocyte Absolute 0.04 K/mm3 (0.00-0.031); Immature Granulocyte Percent A 0.5 % (0-0.5); Lymphocytes Absolute Auto 1.99 K/mm3 (0.9-3.2); Lymphocytes Percent Auto 23.6 % (18.3-44.2); Mean Corpuscular HGB Conc 34.1 g/dl (32-36); Mean Corpuscular Hemoglobin 30.4 pg (26-34); Mean Corpuscular Volume 89.1 fl (80-100); Mean Platelet Volume 10.1 fl (7.4-10.4); Monocytes Absolute Auto 0.9 K/mm3 (0.1-0.6); Monocytes Percent Auto 10.2 % (2.6-8.5); Neutrophils Absolute Auto 5.3 K/mm3 (1.3-6.7); Neutrophils Percent Auto 62.8 % (45.5-73.1); Platelet Count Result 246 k/mm3 (150-375); Red Blood Count 5.06 M/mm3 (4.6-6.20); Red Cell Distribution Width 12.3 % (11.5-14.5); White Blood Count 8.4 K/mm3 (4.5-10.0)
[2024-09-06 07:10] LABS: Alanine Aminotransferase 51 U/L (6-50); Albumin Level 4.4 g/dL (3.5-5.1); Alkaline Phosphatase 70 U/L (38-126); Anion Gap 10 mmol/L (4-12); Aspartate Amino Transferase 30 U/L (17-59); Bilirubin,Total 1.3 mg/dL (0.2-1.3); Blood Urea Nitrogen 7 mg/dL (9-20); Calcium 9.2 mg/dL (8.4-10.2); Carbon Dioxide 29 mmol/L (22-30); Chloride 100 mmol/L (98-107); Estimated CRCL calculation 145 ml/min; Estimated Glomerular Filt Rate > 60; Glucose 104 mg/dL (65-110); Magnesium 2.4 mg/dL (1.6-2.3); Sodium 139 mmol/L (137-145)
--- NOTE | 2024-09-06 10:47 | PM.PNGS ---
Progress Note: A&P Assessment and Plan (1) Acute diverticulitis: Code(s): K57.92 - Diverticulitis of intestine, part unspecified, without perforation or abscess without bleeding Status: Acute Assessment and Plan: Improving significantly. No pain and no tenderness. Continue IV antibiotics. Advanced to low-fiber diet. If continues to improve, home tomorrow on oral antibiotics and low-fiber diet. Subjective Subjective Date/Time Seen: 09/06/24 10:47 Patient reports: feels better, pain is less (No abdominal pain) and tolerating liquids well Review of Systems Review of Systems: All systems reviewed & are unremarkable except as noted in HPI and below (HPI) Exam GI: Inspection: normal to inspection and non-distended GI Palp: Yes Soft to palpation, No Tenderness to palpation present (GI) and No Guarding due to palpation present (GI) Objective Data Vital Signs Vital Signs: Vital Signs - 24 hr 09/05/24 14:00 09/05/24 22:00 09/05/24 20:00 Temperature 36.6 C 36.7 C Pulse Rate 96 73 Respiratory Rate 18 18 Blood Pressure 128/81 125/86 Pulse Oximetry 80 L 97 Oxygen Delivery Room Air 09/06/24 06:00 09/06/24 08:00 Temperature Pulse Rate 66 Respiratory Rate 16 Blood Pressure 119/80 Pulse Oximetry 97 Oxygen Delivery Room Air Intake/Output Intake/Output: Intake & Output 09/03/24 09/04/24 09/05/24 09/06/24 23:59 23:59 23:59 23:59 Intake Total 150 3991.3 590 Balance 150 3991.3 590 Meds/Results Medications: Active Medications Generic Name Dose Route Start Last Admin Trade Name Freq PRN Reason Stop Dose Admin Piperacillin/Tazobactam/Dextrose 3.375 gm in 50 mls @ 100 mls/hr 09/04/24 12:00 09/06/24 06:24 Zosyn 3.375 Gm/Ns 50 Ml IVPB Infused Q6H TOMMIE Infusion Morphine Sulfate 4 mg 09/04/24 07:17 09/04/24 12:55 Morphine Sulfate (*Crx) 4 Mg/Ml Inj IV PUSH 4 mg Q2H PRN Administration Pain Rated 7-10 Ondansetron HCl 4 mg 09/04/24 07:17 09/04/24 17:26 Ondansetron Inj 4 Mg/2 Ml Vial IV PUSH 4 mg Q4H PRN Administration Nausea Radiology Results: ITS Impressions Abdomen/Pelvis CT 09/04/24 06:38 Impression: Acute sigmoid diverticulitis with possible contained microperforation adjacent to the colon versus mild prominent diverticulum. No abscess. Labs Labs: Laboratory Results - last 24 hr 09/06/24 06:27 WBC 8.4 RBC 5.06 Hgb 15.4 Hct 45.1 MCV 89.1 MCH 30.4 MCHC 34.1 RDW 12.3 Plt Count 246 MPV 10.1 Immature Gran % (Auto) 0.5 Neut % (Auto) 62.8 Lymph % (Auto) 23.6 [place] % (Auto) 10.2 H Eos % (Auto) 2.1 Baso % (Auto) 0.8 Lymph # (Auto) 1.99 [place] # (Auto) 0.9 H Eos # (Auto) 0.2 Baso # (Auto) 0.1 Abs Immat Gran (auto) 0.04 H Absolute Neuts (auto) 5.3 Absolute Nucleated RBC 0.000 Nucleated RBC % 0.0 Sodium 139 Potassium 4.0 Chloride 100 Carbon Dioxide 29 Anion Gap 10 BUN 7 L Creatinine 0.80 Estim Creat Clear Calc 145 Estimated GFR > 60 Glucose 104 Calcium 9.2 Magnesium 2.4 H Total Bilirubin 1.3 AST 30 ALT 51 H Alkaline Phosphatase 70 Total Protein 8.0 Albumin 4.4
--- NOTE | 2024-09-06 13:25 | P.PNIM_ITS ---
Progress Note: A&P Assessment and Plan (1) Acute diverticulitis: Code(s): K57.92 - Diverticulitis of intestine, part unspecified, without perforation or abscess without bleeding Status: Acute Plan Acute sigmoid diverticulitis with microperforation Patient has been having left lower quadrant pain since yesterday. Patient has sudden onset abdomen pain, denies nausea vomiting Patient has leukocytosis continues to improve non operative management CT abdomen pelvis showed acute sigmoid diverticulitis with micro perforation On D5 lactated Ringer 125 mL/hour Received Zosyn in the ED, continue Zosyn IV Consult general surgeon, follow recommendation Optimize pain management Advance diet If tolerated home tomorrow on oral antibiotics. Will discontinue IV fluid Subjective Date/time seen: 09/06/24 13:25 Interval history: No overnight events. No further pain. Tolerated clear liquid. No nausea vomiting. Review of Systems Review of Systems: All systems reviewed & are unremarkable except as noted in HPI and below Exam Narrative: GENERAL: Pleasant, in no acute distress. Well-nourished. - EYES: EOMI. Anicteric. - HENT: Moist mucous membranes. - LUNGS: Clear to auscultation bilateral ly, no wheezing, rhonchi, or rales. - CARDIOVASCULAR: Regular rate and rhyth m. No murmur. No JVD. - ABDOMEN: Soft, left lower quadrant te nder mild and non-distended. No palpable masses. - EXTREMITIES: No edema. Peripheral puls es 2+. Non-tender. - NEUROLOGIC: No focal neurological defi cits. CN II-XII grossly intact. - PSYCHIATRIC: Awake, Alert and oriented x 3. Appropriate mood and affect. - SKIN: No rashes or lesions. Warm. - LYMPH: No cervical lymphadenopathy. Objective Data Vital Signs Vital Signs: Vital Signs - 24 hr 09/05/24 14:00 09/05/24 22:00 09/05/24 20:00 Temperature 97.9 F 98.1 F Pulse Rate 96 73 Respiratory Rate 18 18 Blood Pressure 128/81 125/86 Pulse Oximetry 80 L 97 Oxygen Delivery Room Air 09/06/24 06:00 09/06/24 08:00 Temperature Pulse Rate 66 Respiratory Rate 16 Blood Pressure 119/80 Pulse Oximetry 97 Oxygen Delivery Room Air Intake/Output Intake/Output: Intake & Output 09/03/24 09/04/24 09/05/24 09/06/24 23:59 23:59 23:59 23:59 Intake Total 150 3991.3 590 Balance 150 3991.3 590 Meds/Results Medications: Active Medications Generic Name Dose Route Start Last Admin Trade Name Freq PRN Reason Stop Dose Admin Piperacillin/Tazobactam/Dextrose 3.375 gm in 50 mls @ 100 mls/hr 09/04/24 12:00 09/06/24 12:06 Zosyn 3.375 Gm/Ns 50 Ml IVPB 100 mls/hr Q6H TOMMIE Administration Morphine Sulfate 4 mg 09/04/24 07:17 09/04/24 12:55 Morphine Sulfate (*Crx) 4 Mg/Ml Inj IV PUSH 4 mg Q2H PRN Administration Pain Rated 7-10 Ondansetron HCl 4 mg 09/04/24 07:17 09/04/24 17:26 Ondansetron Inj 4 Mg/2 Ml Vial IV PUSH 4 mg Q4H PRN Administration Nausea Radiology Results: ITS Impressions Abdomen/Pelvis CT 09/04/24 06:38 Impression: Acute sigmoid diverticulitis with possible contained microperforation adjacent to the colon versus mild prominent diverticulum. No abscess. Labs Labs: Laboratory Results - last 24 hr 09/06/24 06:27 WBC 8.4 RBC 5.06 Hgb 15.4 Hct 45.1 MCV 89.1 MCH 30.4 MCHC 34.1 RDW 12.3 Plt Count 246 MPV 10.1 Immature Gran % (Auto) 0.5 Neut % (Auto) 62.8 Lymph % (Auto) 23.6 [place] % (Auto) 10.2 H Eos % (Auto) 2.1 Baso % (Auto) 0.8 Lymph # (Auto) 1.99 [place] # (Auto) 0.9 H Eos # (Auto) 0.2 Baso # (Auto) 0.1 Abs Immat Gran (auto) 0.04 H Absolute Neuts (auto) 5.3 Absolute Nucleated RBC 0.000 Nucleated RBC % 0.0 Sodium 139 Potassium 4.0 Chloride 100 Carbon Dioxide 29 Anion Gap 10 BUN 7 L Creatinine 0.80 Estim Creat Clear Calc 145 Estimated GFR > 60 Glucose 104 Calcium 9.2 Magnesium 2.4 H Total Bilirubin 1.3 AST 30 ALT 51 H Alkaline Phosphatase 70 Total Protein 8.0 Albumin 4.4
[2024-09-06 14:00] VITALS: BP 127/69; PULSE 59; RESP 18; TEMP 36.3; O2SAT 97
[2024-09-06 21:25] VITALS: BP 116/81; PULSE 75; RESP 16; TEMP 36.7; O2SAT 96
[2024-09-07 05:16] VITALS: BP 132/91; PULSE 81; RESP 16; TEMP 36.4; O2SAT 100
[2024-09-07] MEDS: PIPERACILLN/TAZ 3.375GM/NS50ML 3.375 GM/50 ML BAG IVPB (05:16)
[2024-09-07 06:36] LABS: Hematocrit 44.2 % (42.0-52.0); Hemoglobin 15.8 g/dL (14.0-18.0); Mean Corpuscular HGB Conc 35.7 g/dl (32-36); Mean Corpuscular Hemoglobin 31.5 pg (26-34); Mean Corpuscular Volume 88.2 fl (80-100); Platelet Count Result 296 k/mm3 (150-375); Red Blood Count 5.01 M/mm3 (4.6-6.20); Red Cell Distribution Width 12.2 % (11.5-14.5)
[2024-09-07 06:59] LABS: Anion Gap 10 mmol/L (4-12); Blood Urea Nitrogen 8 mg/dL (9-20); Calcium 9.2 mg/dL (8.4-10.2); Carbon Dioxide 29 mmol/L (22-30); Chloride 102 mmol/L (98-107); Estimated CRCL calculation 130 ml/min; Estimated Glomerular Filt Rate > 60; Glucose 98 mg/dL (65-110); Potassium 3.7 mmol/L (3.4-5.0); Sodium 141 mmol/L (137-145)
--- NOTE | 2024-09-07 11:38 | P.DS_ITS ---
DS: Admitting Diagnosis Discharge Date 09/07/2024 Admitting Diagnosis Abdominal pain DS: Discharge Diagnosis Discharge Diagnosis (1) Acute diverticulitis: Code(s): K57.92 - Diverticulitis of intestine, part unspecified, without perforation or abscess without bleeding Status: Acute DS: Summary Hospital Course Hospital Course: Acute sigmoid diverticulitis with microperforation Patient has been having left lower quadrant pain since a day prior to admiss ion.. Patient has sudden onset abdomen pain, denies nausea vomiting Patient has leukocytosis continues to improve non operative management CT abdomen pelvis showed acute sigmoid diverticulitis with micro perforation Was treated with IV fluid and IV antibiotics Zosyn. General surgery was consulted. Patient improved. Advanced diet and tolerated a low-fiber diet. Antibiotic will be switched to oral and will be discharged home. Time Spent with Patient Time attestation: Total time spent providing and/or coordinating discharge services: 35 minutes Exam Narrative: GENERAL: Pleasant, in no acute distress. Well-nourished. - EYES: EOMI. Anicteric. - HENT: Moist mucous membranes. - LUNGS: Clear to auscultation bilateral ly, no wheezing, rhonchi, or rales. - CARDIOVASCULAR: Regular rate and rhyth m. No murmur. No JVD. - ABDOMEN: Soft, nontender and non-diste nded. No palpable masses. - EXTREMITIES: No edema. Peripheral puls es 2+. Non-tender. - NEUROLOGIC: No focal neurological defi cits. CN II-XII grossly intact. - PSYCHIATRIC: Awake, Alert and oriented x 3. Appropriate mood and affect. - SKIN: No rashes or lesions. Warm. - LYMPH: No cervical lymphadenopathy. DS: Data Data Completed and Pending Labs on day of discharge: Labs from last 24 hours 09/07/24 06:19 WBC 9.0 RBC 5.01 Hgb 15.8 Hct 44.2 MCV 88.2 MCH 31.5 MCHC 35.7 RDW 12.2 Plt Count 296 MPV 10.0 Sodium 141 Potassium 3.7 Chloride 102 Carbon Dioxide 29 Anion Gap 10 BUN 8 L Creatinine 0.90 Estim Creat Clear Calc 130 Estimated GFR > 60 Glucose 98 Calcium 9.2 Preliminary micro results at discharge 09/04/24 07:29 Blood Culture - Preliminary Blood 09/04/24 07:39 Blood Culture - Preliminary Blood Imaging Radiologist's impression: ITS Impressions Abdomen/Pelvis CT 09/04/24 06:38 Impression: Acute sigmoid diverticulitis with possible contained microperforation adjacent to the colon versus mild prominent diverticulum. No abscess. Discharge Plan Discharge Attending physician on discharge: Humberto Ventura Consulting providers: Luca Carey Discharging Clinician: Humberto Ventura Anticipated Discharge Date/Time: 09/07/24 11:41 Patient Disposition: Home, Self-Care Activity: as tolerated Diet: low fiber Patient Instructions: Antibiotic Form, Low Fiber Diet (GEN), Diverticulitis Diet (GEN) Stand Alone Forms: General Discharge Information Follow-up/Referrals: Donavon Reynolds MD [Physician] - 4 Weeks Chris Grace DO [Primary Care Provider] - 1 Week Discharge Medications: New amoxicillin-pot clavulanate 875-125 mg tablet 1 tablet PO Q12H Qty: 14 0RF Continued acetaminophen [Tylenol] 325 mg capsule 325 mg PO Q6H PRN (Reason: pain) ibuprofen [Advil] 200 mg tablet 200 mg PO Q6H PRN (Reason: pain) fluticasone propionate [Flonase Allergy Relief] 50 mcg/actuation spray,suspension 1 spray NASAL Q12H Qty: 18.2 1RF Rx Instructions: administer into each nostril Date of admission: 09/04/24 13:35 Primary Care Provider: Chris Grace Admitting Provider: Marissa Myers Attending physician on admission: Marissa Myers Condition: Stable
--- NOTE | 2024-09-07 13:08 | PM.PNGS ---
Progress Note: A&P Assessment and Plan (1) Acute diverticulitis: Code(s): K57.92 - Diverticulitis of intestine, part unspecified, without perforation or abscess without bleeding Status: Acute Assessment and Plan: doing well. Okay to discharge on low-fiber diet. Follow-up with Dr. Carey in 2 weeks. Subjective Subjective Date/Time Seen: 09/07/24 13:08 Patient reports: no new complaints, feels better, tolerating a regular diet, bowel movement and afebrile Review of Systems Review of Systems: All systems reviewed & are unremarkable except as noted in HPI and below (HPI) Exam Const: General: comfortable and no acute distress Orientation/consciousness: patient oriented x3 GI: GI Palp: Yes Soft to palpation, No Tenderness to palpation present (GI), No Guarding due to palpation present (GI) and No Rebound tenderness present Auscultation: normal bowel sounds Neuro: General: patient oriented x3 and no focal motor deficits Psych: Affect: normal affect Insight: Good insight present (Psych) Judgement: Good judgement present (Psych) Objective Data Vital Signs Vital Signs: Vital Signs - 24 hr 09/06/24 14:00 09/06/24 20:00 09/06/24 21:25 Temperature 36.3 C L 36.7 C Pulse Rate 59 L 75 Respiratory Rate 18 16 Blood Pressure 127/69 116/81 Pulse Oximetry 97 96 Oxygen Delivery Room Air 09/07/24 05:16 09/07/24 08:00 Temperature 36.4 C Pulse Rate 81 Respiratory Rate 16 Blood Pressure 132/91 H Pulse Oximetry 100 Oxygen Delivery Room Air Intake/Output Intake/Output: Intake & Output 09/04/24 09/05/24 09/06/24 09/07/24 23:59 23:59 23:59 23:59 Intake Total 150 3991.3 1220 790 Balance 150 3991.3 1220 790 Meds/Results Medications: Active Medications Generic Name Dose Route Start Last Admin Trade Name Freq PRN Reason Stop Dose Admin Piperacillin/Tazobactam/Dextrose 3.375 gm in 50 mls @ 100 mls/hr 09/04/24 12:00 09/07/24 05:16 Zosyn 3.375 Gm/Ns 50 Ml IVPB 100 mls/hr Q6H TOMMIE Administration Morphine Sulfate 4 mg 09/04/24 07:17 09/04/24 12:55 Morphine Sulfate (*Crx) 4 Mg/Ml Inj IV PUSH 4 mg Q2H PRN Administration Pain Rated 7-10 Ondansetron HCl 4 mg 09/04/24 07:17 09/04/24 17:26 Ondansetron Inj 4 Mg/2 Ml Vial IV PUSH 4 mg Q4H PRN Administration Nausea Radiology Results: ITS Impressions Abdomen/Pelvis CT 09/04/24 06:38 Impression: Acute sigmoid diverticulitis with possible contained microperforation adjacent to the colon versus mild prominent diverticulum. No abscess. Labs Labs: Laboratory Results - last 24 hr 09/07/24 06:19 WBC 9.0 RBC 5.01 Hgb 15.8 Hct 44.2 MCV 88.2 MCH 31.5 MCHC 35.7 RDW 12.2 Plt Count 296 MPV 10.0 Sodium 141 Potassium 3.7 Chloride 102 Carbon Dioxide 29 Anion Gap 10 BUN 8 L Creatinine 0.90 Estim Creat Clear Calc 130 Estimated GFR > 60 Glucose 98 Calcium 9.2
== END 2024-09-07 13:25 | disposition home or self-care (01) | DRG 392 ==
LOC: ANHED 06:59 → ANH3MEDSUR 08:03
PROVIDERS: Surgery; Admitting Provider Hospitalist; Emergency Provider Emergency Medicine; PCP Internal Medicine; Visit Provider Internal Medicine
DX: K57.20 Diverticulitis of large intestine with perforation and abscess without bleeding (principal); E78.1 Pure hyperglyceridemia; F17.210 Nicotine dependence, cigarettes, uncomplicated
CPT/HCPCS: 36415; 74177; 80048; 80053; 81001; 83690; 83735; 85025; 85027; 87040; 96365; 96375; 99285; G0378; G0379; J2270; J2405; J2543; J7120; J7121; Q9967

== ENCOUNTER 2024-10-25 00:47 | Emergency (ER) | payer OTHER, SELFPAY ==
[2024-10-25 00:59] VITALS: BP 144/98; PULSE 82; RESP 18; TEMP 37; O2SAT 98
--- NOTE | 2024-10-25 01:15 | ED.EAR ---
HPI - Ear Problem General Chief complaint: Ear Stated complaint: L ear pain Time Seen by Provider: 10/25/24 01:15 Source: patient Mode of arrival: ambulatory Limitations: no limitations History of Present Illness HPI Narrative: This is a 38 year old male that presents to the ER for left ear pain. Ongoing over the last couple of hours. Denies fevers or drainage. Related Data Home Medications ?Medication ?Instructions ?Recorded ?Confirmed ?Last Taken ?Type acetaminophen 325 mg capsule 325 mg PO Q6H PRN pain 11/12/19 10/01/24 Unknown History (Tylenol) ibuprofen 200 mg tablet (Advil) 200 mg PO Q6H PRN pain 11/12/19 10/01/24 Unknown History Allergies Allergy/AdvReac Type Severity Reaction Status Date / Time No Known Allergies Allergy Verified 10/25/24 00:48 Review of Systems Review of Systems: CONSTITUTIONAL: Denies fever, ENT: Reports otalgia. All systems reviewed & are unremarkable except as noted in HPI and below PMFSH Past Medical History Medical History Upper respiratory infection Broken arm Broken legs Chronic pain Hypertriglyceridemia Family History Family History Mother Patient's mother is in good health Father Patient's father is in good health Social History Social History Smoking packs per day: 1 Smoking cigarettes per day: 20.0 Smoking status: Current every day smoker Second hand tobacco smoke exposure: No Alcohol intake: never Substance use: never Do You Feel Safe in your Home?: Yes Lack of Transportation: No Lack of Food: Never True Current Housing: I Have Housing Concerned About Future Housing: No Difficulty Paying Gas/Electric Bills: No Difficulty Paying for Meds: No Currently Unemployed: No Education: Trade/Vocational Certificate Difficulty w/ Childcare or Family Care: No Spiritual care concerns: No Exam Narrative: GENERAL: Well-appearing, well-nourished, and in no acute distress. HEAD: Normocephalic, atraumatic. EYES: EOMI. ENT: Bilateral TMs pearly de souza non-bulging. Left external auditory canal with redness and swelling NECK: Supple. No adenopathy or masses. EXTREMITIES: Normal range of motion. No edema. SKIN: Warm, dry, no rash. NEURO: No focal deficits. Alert and oriented x3. PSYCH: Normal mood and affect Course Course Emergency Course: Patient agrees with plan of care Vital Signs Vital signs: Vital Signs Temperature 98.6 F 10/25/24 00:59 Pulse Rate 82 10/25/24 00:59 Respiratory Rate 18 10/25/24 00:59 Blood Pressure 144/98 H 10/25/24 00:59 Pulse Oximetry 98 10/25/24 00:59 Temperature 98.6 F 10/25/24 00:59 Pulse Rate 82 10/25/24 00:59 Respiratory Rate 18 10/25/24 00:59 Blood Pressure 144/98 H 10/25/24 00:59 Pulse Oximetry 98 10/25/24 00:59 Medical Decision Making MDM Narrative Medical decision making narrative: patient presents the emergency department for left ear pain. Exam is consistent with otitis externa. Patient is afebrile and nontoxic appearing. Will be started on topical antibiotics. He is to follow up with primary provider. He was given warnings to return the ER Vital Signs Vital Signs: Vital Signs Temperature 98.6 F 10/25/24 00:59 Pulse Rate 82 10/25/24 00:59 Respiratory Rate 18 10/25/24 00:59 Blood Pressure 144/98 H 10/25/24 00:59 Pulse Oximetry 98 10/25/24 00:59 Temperature 98.6 F 10/25/24 00:59 Pulse Rate 82 10/25/24 00:59 Respiratory Rate 18 10/25/24 00:59 Blood Pressure 144/98 H 10/25/24 00:59 Pulse Oximetry 98 10/25/24 00:59 Critical Care Time Critical Care Time Critical Care Time: No Discharge Plan Discharge Clinical Impression: Otitis externa Qualifiers: Otitis externa type: unspecified type Chronicity: acute Laterality: left Qualified Code(s): H60.502 - Unspecified acute noninfective otitis externa, left ear Patient Disposition: Home, Self-Care Condition: Stable Instructions: Antibiotic Form, Swimmer's Ear (ED) Additional Instructions: Return to the emergency department for worsening symptoms, or any other concerns Take Tylenol or Motrin [id number] for pain as needed. Instill topical antibiotic as prescribed Follow up with primary care doctor Patient Language: [place] Prescriptions: New ofloxacin 0.3 % drops 10 drp LEFT EAR DAILY 7 Days Qty: 10 0RF No Action acetaminophen [Tylenol] 325 mg capsule 325 mg PO Q6H PRN (Reason: pain) ibuprofen [Advil] 200 mg tablet 200 mg PO Q6H PRN (Reason: pain) Follow-up/Referrals: Chris Grace, [Primary Care Provider] -
--- OUTSIDE RECORDS SUMMARY | 2024-11-01 01:10 | XMS_ITS | Continuity of Care Document ---
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 Name Role Phone Chris Grace DO Primary Care Provider Malachi Hensley MD Emergency Provider + Luca Carey MD Other Provider Marissa Myers MD Admit Provider [phone] Humberto Ventura MD Attending Provider Alverto Golden MD Other Provider Tevin Guadarrama MD Other Provider Kaleigh Zamudio Attending Provider Care Teams Patient Care Team Team Status: Active Member Role Status Dates Chris Grace DO Primary Care Provider Active Visit Care Team Team Status: Inactive Member Role Status Dates SHAYE Amor Attending Provider, Referring Provider Active Visit Care Team Team Status: Inactive Member Role Status Dates Chris Grace DO Primary Care Provider Active Malachi Hensley MD Emergency Provider Active Luca Carey MD Other Provider Active Marissa Myers MD Admit Provider Active Humberto Ventura MD Attending Provider Active Alverto Golden MD Other Provider Active Tevin Guadarrama MD Other Provider Active Chief Complaint and Reason for Visit Chief Complaint Admit Date Abdominal Pain/Diverticulitis w Microper foration September 04, 2024 1:35pm follow up September 24, 2024 1 1:04am Reason for Visit Admit Date Acute diverticulitis September 04, 2024 1:35pm Acute diverticulitis September 24, 2024 11:04am Hospital discharge follow-up September 11:04am Reason for Referral Referring Provider Name Referring Provider Address Referring Provider Phone Referral Date Requested Appointment Date Referral Reason September 24, 2024 Z09 - Encounter for follow-up examination after completed treatment for conditions other than malignant neoplasm Allergies, Adverse Reactions, Alerts No known allergies Social History Smoking Status Status Start Date End Date Date of Observa tion Smokes tobacco daily (finding) September 24, 2024 11:18am Observation Status Observation Response Date of Response Do You Feel Safe in your Home? Yes N ov2023 9:19am Has Lack of Trans Kept You From Med Appts or Getting Meds? No September 04, 2024 9:19am In Past 12 Months, Were You Worried Your Food Would Run Out? Never True September 04, 2024 9:19am What is Your Housing Situati on Today? I Have Housing September 04, 2024 9:19am Are You Worried That in Next 2 Mo, You Won't Have Housing? No September 04, 2024 9:19am Do You Have Trouble Paying Your Heating Or Electricity Bill? No September 04, 2024 9:19am Do You Have Trouble Paying F or Medicines? No September 04, 2024 9:19am Are You Currently Unemployed and Looking for Work? No September 04, 2024 9:19am Highest Level of Education Completed Trade/Vocational Certificate September 04, 2024 9:19a m Do You Have Trouble With Childcare/Care of a Family Member? No September 04, 2024 9:19am alcohol intake never September 04, 2 024 9:19am Patient Sex Male September 24 7:46pm Assigned Sex Male November Family History Relationship Condition Age at Onset Recorded Date/T kenny mother Patient's mother is in good health Unknow n father Patient's father is in good health Unknow n Problems Active Problems Medical Problem Onset Date Status Diverticula of colon Unknown Active Acute diverticulitis Unknown Active Hospital discharge follow-up Unknown Act devora Inactive/Resolved Problems Medical Problem Onset Date Status Upper respiratory infection Unknown Reso lved Medications Medication Status Dose Units Route Directions Qty Days St art Date Stop Date End Date Instructions Adherence Acetaminoph en (Tylenol) 325 mg capsule Active 325 MG PO Q6H as needed for pain Sarai y 2019 12:00a m Ibuprofen (Advil) 200 mg tablet Active 200 MG PO Q6H as needed for pain Januar y 2019 12:00a m Immunizations Immunization Event Date Not Given 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 Vaccine Information Statement (VIS) Detail Administration Location Tetanus, Diphtheria, Pertussis (Tdap) October 22, 2012 Procedures Procedure Date Performed Status Blood Culture September 04, 2024 completed Relevant Diagnostic Tests and/or Laboratory Data Laboratory Results Test Date/Time Result Interpretation Reference Range Result Comment Performing Site White Blood Count September 07, 2024 6:19am 9.0 K/mm3 4.5-10.0 [facility] [id number] [facility] [address] [address] Red Blood Count September 07, 2024 6:19am 5.01 M/mm3 4.6-6.20 [facility] [id number] [address] [place] [address] 87483 Hemoglobin September 07, 2024 6:19am 15.8 g/dL 14.0-18.0 [facility] [id number] [address] [place] [address] 64291 Hematocrit September 07, 2024 6:19am 44.2 % 42.0-52.0 [facility] [id number] [facility] [address] [address] Mean Corpuscular Volume September 07, 2024 6:19am 88.2 fL 80-100 [facility] [id number] [address] [place] [address] 74755 Mean Corpuscular Hemoglobin September 07, 2024 6:19am 31.5 pg 26-34 [facility] [id number] [address] [place] [address] 52522 Mean Corpuscular Hemoglobin Concent September 07, 2024 6:19am 35.7 g/dL 32-36 [facility] [id number] [facility] [address] [address] Red Cell Distribution Width September 07, 2024 6:19am 12.2 % 11.5-14.5 [facility] [id number] [facility] [address] [address] Platelet Count September 07, 2024 6:19am 296 k/mm3 150-375 [facility] [id number] [facility] [address] [address] Mean Platelet Volume September 07, 2024 6:19am 10.0 fL 7.4-10.4 [facility] [id number] [address] [place] [address] Nucleated Red Blood Cells % September 06, 2024 6:27am 0.0 % 0.0-0.2 [facility] [id number] [address] [place] [address] Immature Granulocyte % (Auto) September 06, 2024 6:27am 0.5 % 0-0.5 [facility] [id number] [address] [place] [address] 03004 Neutrophils (%) (Auto) September 06, 2024 6:27am 62.8 % 45.5-73.1 [facility] [id number] [address] [place] [address] 05819 Lymphocytes (%) (Auto) September 06, 2024 6:27am 23.6 % 18.3-44.2 [facility] [id number] [address] [place] [address]30 Monocytes (%) (Auto) September 06, 2024 6:27am 10.2 % Above high normal 2.6-8.5 [facility] [id number] [address] [place] [address] 60693 Eosinophils (%) (Auto) September 06, 2024 6:27am 2.1 % 0-4.4 [facility] [id number] [address] [place] [address] 67652 Basophils (%) (Auto) September 06, 2024 6:27am 0.8 % 0.2-1.2 [facility] [id number] [address] [place] [address] 48234 Nucleated RBC Absolute Count (auto) September 06, 2024 6:27am 0.000 K/mm3 0.0-0.012 [facility] [id number] [address] [place] [address] 78444 Absolute Immature Granulocyte (auto September 06, 2024 6:27am 0.04 K/mm3 Above high normal 0.00-0.031 [facility] [id number] [address] [place] [address] 13082 Absolute Neutrophils (auto) September 06, 2024 6:27am 5.3 K/mm3 1.3-6.7 [facility] [id number] [facility] [address] [address] Lymphocytes # (Auto) September 06, 2024 6:27am 1.99 K/mm3 0.9-3.2 [facility] [id number] [address] [place] [address] 31222 Monocytes # (Auto) September 06, 2024 6:27am 0.9 K/mm3 Above high normal 0.1-0.6 [facility] [id number] [address] [place] [address] 17715 Eosinophils # (Auto) September 06, 2024 6:27am 0.2 K/mm3 0-0.3 [facility] [id number] [address] [place] [address] 70671 Basophils # (Auto) September 06, 2024 6:27am 0.1 K/mm3 0.0-0.1 [facility] [id number] [address] [place] [address]39 Urine Color September 04, 2024 5:42am Yellow Yellow [facility] [id number] [address] [place] [address] 62442 Urine Appearance September 04, 2024 5:42am Clear Clear [facility] [id number] [address] [place] [address] 66948 Urine pH September 04, 2024 5:42am 5.0 5.0-9.0 [facility] [id number] [address] [place] [address] 36280 Urine Specific [place] September 04, 2024 5:42am 1.026 1.001-1.03 5 [facility] [id number] [address] [place] [address] 94013 Urine Protein September 04, 2024 5:42am Trace mg/dL Negative [facility] [id number] [address] [place] [address] 59402 Urine Glucose (UA) September 04, 2024 5:42am Negative mg/dL Negative [facility] [id number] [address] [place] [address] 21691 Urine Ketones September 04, 2024 5:42am Trace mg/dL Above high normal Negative [facility] [id number] [address] [place] [address] 39719 Urine Blood (Manual) September 04, 2024 5:42am Trace Negative [facility] [id number] [address] [place] [address] 80333 Urine Nitrate September 04, 2024 5:42am Negative Negative [facility] [id number] [facility] [address] [address] Urine Bilirubin September 04, 2024 5:42am Negative Negative [facility] [id number] [facility] [address] [address] Urine Urobilinogen September 04, 2024 5:42am 1.0 mg/dL <2.0 [facility] [id number] [address] [place] [address] 27151 Urine Leukocyte Esterase (Reflex) September 04, 2024 5:42am Negative DIANNE/UL Negative [facility] [id number] [address] [place] [address] 21254 Urine RBC September 04, 2024 5:42am 0-2 [HPF] 0-2 [facility] [id number] [address] [place] [address] 38141 Urine WBC September 04, 2024 5:42am 0-5 [HPF] 0-3 [facility] [id number] [address] [place] [address] 47915 Urine Squamous Epithelial Cells September 04, 2024 5:42am Occasional [HPF] Few [facility] [id number] [address] [place] [address] 52712 Urine Bacteria September 04, 2024 5:42am None seen [HPF] [facility] [id number] [address] [place] [address] 14714 Sodium Level September 07, 2024 6:19am 141 mmol/L 137-145 [facility] [id number] [address] [place] [address] 06818 Potassium Level September 07, 2024 6:19am 3.7 mmol/L 3.4-5.0 [facility] [id number] [address] [place] [address] 81687 Chloride Level September 07, 2024 6:19am 102 mmol/L 98-107 [facility] [id number] [address] [place] [address] 19092 Carbon Dioxide Level September 07, 2024 6:19am 29 mmol/L 22-30 [facility] [id number] [facility] [address] [address] Anion Gap September 07, 2024 6:19am 10 mmol/L 4-12 [facility] [id number] [address] [place] [address] 81583 Blood Urea Nitrogen September 07, 2024 6:19am 8 mg/dL Below low normal 9-20 [facility] [id number] [address] [place] [address] 40764 Creatinine September 07, 2024 6:19am 0.90 mg/dL 0.7-1.3 [facility] [id number] [address] [place] [address] 17931 Estimat Glomerular Filtration Rate September 07, 2024 6:19am > 60 >59 > OR = 60 ml/min/1.73 square metersThe MDRD formula used to calculate the eGFR result has not been validated in patients > 70 years of age. [facility] [id number] [address] [place] [address]104 Estimated Creatinine Clearance Calc September 07, 2024 6:19am 130 mL/min For use in prescription drug dose determination only. Reference ranges have not been establishe for this calculation. [facility] [id number] [address] [place] [address] 70545 Glucose Level September 07, 2024 6:19am 98 mg/dL 65-110 [facility] [id number] [address] [place] [address] 83766 Calcium Level September 07, 2024 6:19am 9.2 mg/dL 8.4-10.2 [facility] [id number] [address] [place] [address]26 Magnesium Level September 06, 2024 6:27am 2.4 mg/dL Above high normal 1.6-2.3 [facility] [id number] [address] [place] [address] 12357 Total Bilirubin September 06, 2024 6:27am 1.3 mg/dL 0.2-1.3 [facility] [id number] [address] [place] [address] 19871 Aspartate Amino Transf (AST/SGOT) September 06, 2024 6:27am 30 U/L 17-59 [facility] [id number] [address] [place] [address] 37188 Alanine Aminotransfera se (ALT/SGPT) September 06, 2024 6:27am 51 U/L Above high normal 6-50 [facility] [id number] [address] [place] [address] 64171 Total Protein September 06, 2024 6:27am 8.0 g/dL 6.3-8.2 [facility] [id number] [address] [place] [address] 62396 Albumin September 06, 2024 6:27am 4.4 g/dL 3.5-5.1 [facility] [id number] [address] [place] [address] 41030 Alkaline Phosphatase September 06, 2024 6:27am 70 U/L 38-126 [facility] [id number] [address] [place] [address] 25028 Lipase September 04, 2024 5:42am 35 U/L 23-300 [facility] [id number] [address] [place] [address] 07826 Urine Casts September 04, 2024 5:42am 0-2 [facility] [id number] [address] [place] [address] 46817 Microbiology Results Procedure Source Result Collection Date/Time Result Date/Time Result Comment Performing Site Blood Culture Blood September 04, 2024 7:39am September 10, 2024 12:59am [facility] Vital Signs Vital Reading Result Reference Range Collection Date/Time Height 74 [in_i] September 04, 2024 9:19am Weight 113.60 kg September 04, 2024 9:19am Body Temperature 97.6 [degF] 97.6-99.6 September 072023 5:16am Heart Rate 81 /min 60-100 September 07, 2024 5:16am Respiratory rate 16 /min 12-20 September 072023 5:16am Oxygen saturation by Pulse oximetry 100 % 90-100 September 07, 2024 5:16am BP Systolic 132 mm[Hg] 100-140 September 07, 2024 5:16am BP Diastolic 91 mm[Hg] 60-90 September 07, 2024 5:16am BMI (Body Mass Index) 32.1 kg/m2 [facility] 2023 9:19am Inhaled oxygen concentration 21 % September 05, 2024 8:47am Height 74 [in_i] September 24 11:09am Weight 114.98 kg September 24 11:09am Body Temperature 97.8 [degF] 97.6-99.6 September 11:09am Heart Rate 76 /min 60-100 [facility], 2 024 11:09am Oxygen saturation by Pulse oximetry 99 % 90-100 September 24, 2024 1 1:09am BP Systolic 122 mm[Hg] 100-140 September 24, 2 024 11:09am BP Diastolic 80 mm[Hg] 60-90 September 24, 2 024 11:09am BMI (Body Mass Index) 32.5 kg/m2 [facility] er 2023 11:09am Advance Directives Advance Directive Response Recorded Date/ Time Current Advance Directive No Novemb er 2023 9:19am Insurance Providers Guarantor Trip Burns Sandra Address [address] [place] [id number] Contact Info. Home Phone: Payer Policy Id Coverage Id Subscriber's Name Subscriber Id Effective Date Expiration Date [facility] [id number] Trip Grant Flores [id number] Self Pay Self N/A [facility] [id number] Trip Burns Sandra [id number] Encounters Encounter Location(s) Arrival/Admit Date Discharge/Depart Date Provider(s) Discharged Inpatient [place] [address] Med Surg September 04, 2024 1:35pm September 07, 2024 1:25pm Humberto Ventura MD Departed Physician/Provi sg Office Visit [facility] September 24, 2024 11:04am September 24, 2024 11:37am Kaleigh Zamudio , EDGARD Recent Diagnosis Onset Date Admit Date Acute diverticulitis Unknown September 042023 1:35pm Acute diverticulitis Unknown September 11:04am Hospital discharge follow-up Unknown Sep 11:04am Mental Status Observation Response Date Recorded patient oriented x3 Yes August 1:10pm Assessments Diagnosis Onset Date Resolution Status Admit Date Acute diverticulitis acute Nove mb2023 1:35pm Acute diverticulitis acute Dece 2023 11:04am Hospital discharge follow-up acute September 24, 2024 11:04am Plan of Treatment Author Kaleigh Zamudio [facility] Authored September 24, 2024 7 :45pm Records from [place] were tiffanie montero. Time Spent: 25 minutes Future Tests Future scheduled test information is unavailable Pending Tests Pending diagnostic test information is unavailable Future Visits Future appointment information is unavailable Referrals to Other Providers Reason for Referral Referral Start Date Provider Provider Contact Information Provider Address Z09 - Encounter for follow-up examination after completed treatment for conditions other than malignant neoplasm September 24, 2024 Luca Carey MD Work Phone: [address] [facility] [address] [place] [address] Donavon Reynolds MD Work Phone: [address] [facility] [address] [place] [id number] Luca Carey MD Work Phone: [address] [facility] [address] [place] [id number] Chris Grace DO Work Phone: [phone] [facility] [address] [facility] [address] Future Procedures Procedure Name Ordered Date Scheduled Date Discharge Order September 07, 2024 12:55pm Jameel bird 2023 12:55pm Placement to Observation September 04, 2024 7:1 7am September 04, 2024 7:17am Change Status to Inpatient September 04, 2024 1 :35pm September 04, 2024 1:35pm Consult to Physician September 04, 2024 7:17am September 04, 2024 7:18am Future Medications Future medication information is unavailable Patient Instructions Instruction Admit Date Antibiotic Form Low Fiber Diet (GEN) Diverticulitis Diet (GEN) September 04, 2024 1:35pm Goals Acute Goals Author Authored Date Improved infection * Maintains vital signs WNL * Evidences no purulent drainage from wounds, incisions, and tubes * Maintains optimal lab values [facility] September 07, 2024 1:50pm Increase knowledge - smoking cessation Pt will verbalize understanding of smoking cessation resources [facility] September 07, 2024 1:50pm Verbalizes/Demonstrates Unde rstanding *Demonstrates understanding of teaching [facility] September 07, 2024 1:50pm Participate in Discharge Zhou nning In order to achieve this outcome, the patient/ and or family will: * assist in identification of DME needs * assist in identification of community resource needs * assist in identification of appropriate discharge destination [facility] September 07, 2024 1:50pm Develop pain management prog yimi In order to achieve this outcome the patient will: * Use the pain scale appropriately * Identify options for pain control - Analgesics - Narcotics - Non-medication measures [facility] September 07, 2024 1:50pm Increase knowledge regarding pain mgmt *Demonstrates understanding of teaching [facility] September 07, 2024 1:50pm Exhibit optimal respiratory function * Maintain vital signs WNL * Maintain optimal lab values * Maintains optimal breathing pattern [facility] September 07, 2024 1:50pm Hospital Discharge Instructions Ambulatory Orders* General Surgery Referral Time Frame: 09/24/24, Location: None Selected
--- OUTSIDE RECORDS SUMMARY | 2024-11-01 01:11 | XMS_ITS | Continuity of Care Document ---
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 Name Role Phone Chris Grace DO Primary Care Provider [phone] Malachi Hensley MD Emergency Provider + Luca Carey MD Other Provider Marissa Myers MD Admit Provider Marissa Myers MD Attending Provider [phone] Care Teams Patient Care Team Team Status: Active Member Role Status Dates Chris Grace DO Primary Care Provider Active Visit Care Team Team Status: Inactive Member Role Status Dates Chris Grace DO Primary Care Provider Active Malachi Hensley MD Emergency Provider Active Luca Carey MD Other Provider Active Marissa Myers MD Admit Provider, Attending Provider Active Chief Complaint and Reason for Visit Chief Complaint Admit Date Abdominal Pain/Diverticulitis w Microper foration September 04, 2024 1:35pm Reason for Visit Admit Date Acute diverticulitis September 04, 2024 1:35pm Allergies, Adverse Reactions, Alerts No known allergies Social History Smoking Status Status Start Date End Date Date of Observa tion Smokes tobacco daily (finding) September 04, 2024 9:19am Observation Status Observation Response Date of Response [...] 04, 2024 9:19am alcohol intake never September 04 9:19am Patient Sex Male September 07 1:50pm Assigned Sex Male November Family History Relationship Condition Age at Onset Recorded Date/T kenny mother Patient's mother is in good health Unknow n father Patient's father is in good health Unknow n Problems Active Problems Medical Problem Onset Date Status Upper respiratory infection Unknown Acti ve Acute diverticulitis Unknown Active Medications Medication Status Dose Units Route Directions Qty Days St art Date Stop Date End Date Instructions Adherence Acetaminoph en (Tylenol) 325 mg capsule Active 325 MG PO Q6H as needed for pain y 2019 12:00a m Ibuprofen (Advil) 200 mg tablet Active 200 MG PO Q6H as needed for pain y 2019 12:00a m Fluticasone Propionate (Flonase Allergy Relief) 50 mcg/actuati on spray,suspe nsion Active 1 SPRAY NASAL Q12H 18.2 May 12, 2020 11:00p m administer into each nostril Amoxicillin -Pot Clavulanate 875-125 mg tablet Active 1 TABLET PO Q12H 14 Novemb er 2023 12:00a m Immunizations Immunization Event Date Not Given Reason Dose Number [employer] Executive Lot Number Vaccine Information Statement (VIS) Detail Administration Location Tetanus, Diphtheria, Pertussis (Tdap) October 22, 2012 Procedures Procedure Date Performed Status Blood Culture September 04, 2024 active Blood Culture September 04, 2024 active Relevant Diagnostic Tests and/or Laboratory Data Laboratory Results Test Date/Time Result Interpretation Reference Range Result Comment Performing Site White Blood Count September 07, 2024 6:19am 9.0 K/mm3 4.5-10.0 [facility] [id number] [facility] [address] [address] Red Blood Count September 07, 2024 6:19am 5.01 M/mm3 4.6-6.20 [facility] [id number] [facility] [address] [address] Hemoglobin September 07, 2024 6:19am 15.8 g/dL 14.0-18.0 [facility] [id number] [facility] [address] [address] Hematocrit September 07, 2024 6:19am 44.2 % 42.0-52.0 [facility] [id number] [facility] [address] [address] Mean Corpuscular Volume September 07, 2024 6:19am 88.2 fL 80-100 [facility] [id number] [address] [place] [address] Mean Corpuscular Hemoglobin September 07, 2024 6:19am 31.5 pg 26-34 [facility] [id number] [address] [place] [address] Mean Corpuscular Hemoglobin Concent September 07, 2024 6:19am 35.7 g/dL 32-36 [facility] [id number] [address] [place] [address] Red Cell Distribution Width September 07, 2024 6:19am 12.2 % 11.5-14.5 [facility] [id number] [address] [place] [address]197 Platelet Count September 07, 2024 6:19am 296 k/mm3 150-375 [facility] [id number] [facility] [address] [address] Mean Platelet Volume September 07, 2024 6:19am 10.0 fL 7.4-10.4 [facility] [id number] [address] [place] [address]323 Nucleated Red Blood Cells % September 06, 2024 6:27am 0.0 % 0.0-0.2 [facility] [id number] [facility] [address] [address] Immature Granulocyte % (Auto) September 06, 2024 6:27am 0.5 % 0-0.5 [facility] [id number] [address] [place] [address] Neutrophils (%) (Auto) September 06, 2024 6:27am 62.8 % 45.5-73.1 [facility] [id number] [address] [place] [address] Lymphocytes (%) (Auto) September 06, 2024 6:27am 23.6 % 18.3-44.2 [facility] [id number] [address] [place] [address]653 Monocytes (%) (Auto) September 06, 2024 6:27am 10.2 % Above high normal 2.6-8.5 [facility] [id number] [address] [place] [address]874 Eosinophils (%) (Auto) September 06, 2024 6:27am 2.1 % 0-4.4 [facility] [id number] [address] [place] [address] 62582 Basophils (%) (Auto) September 06, 2024 6:27am 0.8 % 0.2-1.2 [facility] [id number] [address] [place] [address] Nucleated RBC Absolute Count (auto) September 06, 2024 6:27am 0.000 K/mm3 0.0-0.012 [facility] [id number] [address] [place] [address] 167[address] Absolute Immature Granulocyte (auto September 06, 2024 6:27am 0.04 K/mm3 Above high normal 0.00-0.031 [facility] [id number] [address] [place] [address] Absolute Neutrophils (auto) September 06, 2024 6:27am 5.3 K/mm3 1.3-6.7 [facility] [id number] [address] [place] [address]645 Lymphocytes # (Auto) September 06, 2024 6:27am 1.99 K/mm3 0.9-3.2 [facility] [id number] [address] [place] [address]159 Monocytes # (Auto) September 06, 2024 6:27am 0.9 K/mm3 Above high normal 0.1-0.6 [facility] [id number] [address] [place] [address] Eosinophils # (Auto) September 06, 2024 6:27am 0.2 K/mm3 0-0.3 [facility] [id number] [address] [place] [address] 14482 Basophils # (Auto) September 06, 2024 6:27am 0.1 K/mm3 0.0-0.1 [facility] [id number] [address] [place] [address] Urine Color September 04, 2024 5:42am Yellow Yellow [facility] [id number] [address] [place] [address] Urine Appearance September 04, 2024 5:42am Clear Clear [facility] [id number] [address] [place], [place] [address] Urine pH September 04, 2024 5:42am 5.0 5.0-9.0 [facility] [id number] [address] [place] [address] Urine Specific [place] September 04, 2024 5:42am 1.026 1.001-1.03 5 [facility] [id number] [address] [place] [address] Urine Protein September 04, 2024 5:42am Trace mg/dL Negative [facility] [id number] [address] [place] [address] 14209 Urine Glucose (UA) September 04, 2024 5:42am Negative mg/dL Negative [facility] [id number] [address] [place] [address] 19915 Urine Ketones September 04, 2024 5:42am Trace mg/dL Above high normal Negative [facility] [id number] [address] [place] [address] 50839 Urine Blood (Manual) September 04, 2024 5:42am Trace Negative [facility] [id number] [address] [place] [address] 34604 Urine Nitrate September 04, 2024 5:42am Negative Negative [facility] [id number] [address] [place] [address]204 Urine Bilirubin September 04, 2024 5:42am Negative Negative [facility] [id number] [address] [place] [address] Urine Urobilinogen September 04, 2024 5:42am 1.0 mg/dL <2.0 [facility] [id number] [address] [place] [address] 66752 Urine Leukocyte Esterase (Reflex) September 04, 2024 5:42am Negative DIANNE/UL Negative [facility] [id number] [address] [place] [address] 14892 Urine RBC September 04, 2024 5:42am 0-2 [HPF] 0-2 [facility] [id number] [address] [place] [address] 29771 Urine WBC September 04, 2024 5:42am 0-5 [HPF] 0-3 [facility] [id number] [address] [place] [address] 14174 Urine Squamous Epithelial Cells September 04, 2024 5:42am Occasional [HPF] Few [facility] [id number] [address] [place] [address]25 Urine Bacteria September 04, 2024 5:42am None seen [HPF] [facility] [id number] [address] [place] [address] Sodium Level September 07, 2024 6:19am 141 mmol/L 137-145 [facility] [id number] [address] [place] [address]447 Potassium Level September 07, 2024 6:19am 3.7 mmol/L 3.4-5.0 [facility] [id number] [address] [place] [address] Chloride Level September 07, 2024 6:19am 102 mmol/L 98-107 [facility] [id number] [address] [place] [address] 58501 Carbon Dioxide Level September 07, 2024 6:19am 29 mmol/L 22-30 [facility] [id number] [address] [place] [address] 24477 Anion Gap September 07, 2024 6:19am 10 mmol/L 4-12 [facility] [id number] [address] [place] [address] 16003 Blood Urea Nitrogen September 07, 2024 6:19am 8 mg/dL Below low normal 9-20 [facility] [id number] [address] [place] [address] Creatinine September 07, 2024 6:19am 0.90 mg/dL 0.7-1.3 [facility] [id number] [address] [place] [address]93 Estimat Glomerular Filtration Rate September 07, 2024 6:19am > 60 >59 > OR = 60 ml/min/1.73 square metersThe MDRD formula used to calculate the eGFR result has not been validated in patients > 70 years of age. [facility] [id number] [address] [place] [address] Estimated Creatinine Clearance Calc September 07, 2024 6:19am 130 mL/min For use in prescription drug dose determination only. Reference ranges have not been establishe for this calculation. [facility] [id number] [address] [place] [address]68 Glucose Level September 07, 2024 6:19am 98 mg/dL 65-110 [facility] [id number] [address] [place] [address]378 Calcium Level September 07, 2024 6:19am 9.2 mg/dL 8.4-10.2 [facility] [id number] [address] [place] [address]262 Magnesium Level September 06, 2024 6:27am 2.4 mg/dL Above high normal 1.6-2.3 [facility] [id number] [address] [place] [address]13 Total Bilirubin September 06, 2024 6:27am 1.3 mg/dL 0.2-1.3 [facility] [id number] [address] [place], [place] [address] Aspartate Amino Transf (AST/SGOT) September 06, 2024 6:27am 30 U/L 17-59 [facility] [id number] [address] [place] [address]463 Alanine Aminotransfera se (ALT/SGPT) September 06, 2024 6:27am 51 U/L Above high normal 6-50 [facility] [id number] [address] [place] [address] Total Protein September 06, 2024 6:27am 8.0 g/dL 6.3-8.2 [facility] [id number] [address] [place] [address] 31850 Albumin September 06, 2024 6:27am 4.4 g/dL 3.5-5.1 [facility] [id number] [address] [place] [address] Alkaline Phosphatase September 06, 2024 6:27am 70 U/L 38-126 [facility] [id number] [address] [place] [address] Lipase September 04, 2024 5:42am 35 U/L 23-300 [facility] [id number] [address] [place] [address] Urine Casts September 04, 2024 5:42am 0-2 [facility] [id number] [address] [place] [address] Diagnostic Imaging Reports Author Tevin Guadarrama [facility] Report Date/Time September 04, 2024 6:42am [place] [address] [place], [place] [address] CT Scan Report Signed Patient: Trip Flores : 1985 MR#: [id number] Age: 38 Acct:[id number] Loc: [facility]ED ADM Date: 09/04/[address]: Ordering Physician: Royer Hensley MD Date of Service: 09/04/24 Procedure(s): CT abdomen pelvis w con Accession Number(s): [id number] cc: Royer Hensley MD; Chris Grace DO~ CT of the Abdomen and Pelvis: Indication: Abdominal pain Technique: 2.5 mm axial scans were obtained through the abdomen and pelvis following intravenous administration of 100 cc of Omnipaque 350. Dose reduction technique was used on this scan by utilizing automated exposure control and iterative reconstruction technique. The dose-length product (DLP) was 1396.16 mGy-cm. Findings: Scans through the lung bases are unremarkable. The liver, spleen, pancreas, gallbladder, adrenals and kidneys are within normallimits. No evidence of aortic aneurysm. No lymphadenopathy. There is wall thickening and inflammatory change of the sigmoid colon, compatible with acute diverticulitis. Possible tiny microperforation versus mildly prominent diverticulum. No abscess evident. No bowel obstruction. Images through the pelvis were performed. Urinary bladder unremarkable. No pelvic mass seen. No ascites. Impression: Acute sigmoid diverticulitis with possible contained microperforation adjacent to the colon versus mild prominent diverticulum. No abscess. Reviewed, dictated and finalized at [facility]. 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 Home Phone: Payer Policy Id Coverage Id Subscriber's Name Subscriber Id Effective Date Expiration Date Counts Include [facility] [id number] Trip Flores [id number] Self Pay Self N/A Encounters Encounter Location(s) Arrival/Admit Date Discharge/Depart Date Provider(s) Discharged Inpatient [facility] 3 Med Surg September 04, 2024 1:35pm September 07, 2024 1:25pm Marissa Myers MD Recent Diagnosis Onset Date Admit Date Acute diverticulitis Unknown September 042023 1:35pm Mental Status Observation Response Date Recorded patient oriented x3 Yes August 1:10pm Assessments Diagnosis Onset Date Resolution Status Admit Date Acute diverticulitis acute Nove mb 2023 1:35pm Plan of Treatment Future Tests Future scheduled test information is unavailable Pending Tests Pending diagnostic test information is unavailable Future Visits Future appointment information is unavailable Referrals to Other Providers Reason for Referral Referral Start Date Provider Provider Contact Information Provider Address Donavon Reynolds MD Work Phone: [phone] [facility] [address] [facility] [address] Luca Carey MD Work Phone: [phone] [facility] [address] [facility] [address] Chris Grace DO Work Phone: [phone] [facility] [address] [facility] [address] Future Procedures Procedure Name Ordered Date Scheduled [...] and tubes * Maintains optimal lab values [facility] September 07, 2024 1:50pm Increase knowledge - smoking cessation Pt will verbalize understanding of smoking cessation resources [facility] September 07, 2024 1:50pm Verbalizes/Demonstrates Unde rstanding *Demonstrates understanding of teaching [facility] September 07, 2024 1:50pm Participate in Discharge Zhou nning In order to achieve this outcome, the patient/ and or family will: * assist in identification of DME needs * assist in identification of community resource needs * assist in identification of appropriate discharge destination [facility] September 07, 2024 1:50pm Develop pain management prog yimi In order to achieve this outcome the patient will: * Use the pain scale appropriately * Identify options for pain control - Analgesics - Narcotics - Non-medication measures [facility] September 07, 2024 1:50pm Increase knowledge regarding pain mgmt *Demonstrates understanding of teaching [facility] September 07, 2024 1:50pm Exhibit optimal respiratory function * Maintain vital signs WNL * Maintain optimal lab values * Maintains optimal breathing pattern [facility] September 07, 2024 1:50pm Consultation Note Author Luca Carey [facility] Note Date/Time September 04, 2024 12:17pm [facility] [address] [place], [place] [address] Consultation Signed Patient: Trip Flores MR#: [id number] : 1985 Acct:[id number] Age: 38 ADM Date: 09/04/24 Loc: [id number]: Marissa Myers M.D. cc: Royer Hensley MD; Chris Grace DO; Marissa Myers MD~ Assessment and Plan Assessment and plan (1) Acute diverticulitis: Code(s): K57.92 - Diverticulitis of intestine, part unspecified, without perforation or abscess without bleeding Status: Acute Assessment and Plan: Acute sigmoid diverticulitis with micro perforation. There is no pelvic abscess. This is 1st episode of diverticulitis. Patient will likely improve with IV antibiotic therapy and relative bowel rest for couple days. He does nothave acute surgical abdomen. Soon he does get better with non operative management I would recommend he get a colonoscopy done and about 4 to 6 weeks to make sure there is no underlying neoplasm causing the inflammation of the colon and micro perforation. Continue supportive management. Continue IV antibiotics. Repeat CBC tomorrow. HPI Data of Consult Date/Time: 09/04/24 12:10 Requesting Physician: Marissa Myers MD Primary Care Provider: Chris Grace DO Consult Narrative Reason for consult: Acute sigmoid diverticulitis with micro perforation Narrative: Trip Flores is a 38 year old male admitted to the hospital with a 12hour history of sudden onset of lower abdominal pain. Small bowel movement yesterday. He never had pain like this in the past. Workup in the emergency room with a CT scan abdomen pelvis showed acute sigmoid diverticulitis with possible microperforation. No pelvic abscess was seen. White blood count was 16,000. He was not tachycardic and not febrile. He has never had a colonoscopyin the past. He did have a THD procedure done in 2018 for symptomatic hemorrhoids which I did here at [facility]. He has never had colonoscopy in the past. Today his pain is a little better. He is has no nausea or vomiting. Review of Systems Review of Systems: The remainder of the review of systems to include constitutional, HEENT, cardiovascular, respiratory, GI, , integumentary, musculoskeletal, endocrine, immunologic, hematologic, psychiatric, and neurologic are all negative except for which is mentioned above in the HPI. [facility] Past Medical History Medical History Broken arm Broken legs Chronic pain Hypertriglyceridemia Family History Family History Mother Patient's mother is in good health Father Patient's father is in good health Social History Social History Smoking packs per day: 1 Smoking cigarettes per day: 20.0 Smoking status: Current every day smoker Second hand tobacco smoke exposure: No Alcohol intake: never Substance use: never Do You Feel Safe in your Home?: Yes Lack of Transportation: No Lack of Food: Never True Current Housing: I Have Housing Concerned About Future Housing: No Difficulty Paying Gas/Electric Bills: No Difficulty Paying for Meds: No Currently Unemployed: No Education: Trade/Vocational Certificate Difficulty w/ Childcare or Family Care: No Spiritual care concerns: No Meds Home Medications and Allergies Home Medications Medication Instructions Recorded Confirmed Type acetaminophen 325 mg capsule 325 mg PO Q6H PRN pain 11/12/19 09/04/24 History (Tylenol) ibuprofen 200 mg tablet (Advil) 200 mg PO Q6H PRN pain 11/12/19 09/04/24 History fluticasone propionate 50 1 spray intranasal Q12H #18.2 mL 05/13/20 09/04/24 Rx mcg/actuation nasal spray,suspension (Flonase Allergy Relief) Allergies Allergy/AdvReac Type Severity Reaction Status Date / Time No Known Allergies Allergy Unverified 01/20/20 12:16 Vital Signs Vital Signs - 24 hr 09/04/24 05:28 09/04/24 07:46 09/04/24 07:46 Temperature 36.6 C Pulse Rate 72 83 Respiratory Rate 12 16 Blood Pressure 118/81 109/70 109/70 Pulse Oximetry 97 96 96 Oxygen Delivery Room Air 09/04/24 07:47 09/04/24 08:00 09/04/24 08:15 Temperature Pulse Rate 90 Respiratory Rate 15 Blood Pressure Pulse Oximetry 96 95 96 Oxygen Delivery Exam Const: General: comfortable and no acute distress HENMT: Ears: TM's normal bilaterally Face/Nose/Sinus: Normal nares present Mouth: Yes moist mucous membranes Eyes: General: appearance normal, both eyes and all related structures Sclera: sclerae normal Pupils: Equal, round and reactive pupils present EOM: EOMs intact bilaterally Neck: Neck: supple and no JVD Resp: Effort & Inspection: normal respiratory effort Auscultation: clear toauscultation bilaterally Cardio: Rate: regular rate Rhythm: regular rhythm GI: Other: Abdomen is soft and nondistended. Has a very small umbilical hernia which is easily reducible. Defect is less than 1cm in diameter. He also has mild tenderness to palpation in the suprapubic region of the abdomen. There is no rebound tenderness or guarding. No masses appreciated. Skin: General skin exam: normal color and no rashes or lesions noted Neuro: General: gait normal Speech: normal speech Motor exam (neuro): 5/5 motor strength present throughout Sensory Exam: normal sensation Extrem: General: normal to inspection Psych: Mental Status: mental status grossly normal Affect: normal affect Results Labs 09/04/24 05:42 09/04/24 05:42 Labs: Short CBC 09/04/24 Range/Units 05:42 WBC 16.8 H (4.5-10.0) K/mm3 Hgb 16.3 (14.0-18.0) g/dL Hct 45.9 (42.0-52.0) % Plt Count 249 (150-375) k/mm3 BMP 09/04/24 05:42 Sodium 139 Potassium 4.0 Chloride 103 Carbon Dioxide 25 BUN 14 Creatinine 0.80 Glucose 120 H Calcium 9.4 Liver Function 09/04/24 Range/Units 05:42 Total Bilirubin 1.4 H (0.2-1.3) mg/dL AST 23 (17-59) U/L ALT 34 (6-50) U/L Alkaline Phosphatase 71 (38-126) U/L Albumin 5.0 (3.5-5.1) g/dL Urine 09/04/24 Range/Units 05:42 Urine Color Yellow (Yellow) Urine Appearance Clear (Clear) Urine pH 5.0 (5.0-9.0) Ur Specific [place] 1.026 (1.001-1.035) Urine Protein Trace (Negative) mg/dL Urine Glucose (UA) Negative (Negative) mg/dL Imaging Radiologist's impression: Patient: Trip Flores : 1985 MR#: [id number] Age: 38 Acct:[id number] Loc: ANHED ADM Date: 09/04/24Attending Dr: Ordering Physician: Royer Hensley MD Date of Service: 09/04/24 Procedure(s): CT abdomen pelvis w con Accession Number(s): [id number] cc: Royer Hensley MD; Chris Grace DO~ CT of the Abdomen and Pelvis: Indication: Abdominal pain Technique: 2.5 mm axial scans were obtained through the abdomen and pelvis following intravenous administration of 100 cc of Omnipaque 350. Dose reduction technique was used on this scan by utilizing automated exposure control and iterative reconstruction technique. The dose-length product (DLP) was 1396.16 mGy-cm. Findings: Scans through the lung bases are unremarkable. The liver, spleen, pancreas, gallbladder, adrenals and kidneys are within normallimits. No evidence of aortic aneurysm. No lymphadenopathy. There is wall thickening and inflammatory change of the sigmoid colon, compatible with acute diverticulitis. Possible tiny microperforation versus mildly prominent diverticulum. No abscess evident. No bowel obstruction. Images through the pelvis were performed. Urinary bladder unremarkable. No pelvic mass seen. No ascites. Impression: Acute sigmoid diverticulitis with possible contained microperforation adjacent to the colon versus mild prominent diverticulum. No abscess. Reviewed, dictated and finalized at [facility]. [employer] This report may have been done utilizing a voice recognition system. Attempts have been made to correct errors. However, there may be uncorrected grammatical,spelling, and recognition errors present. Report Initialized date/time: Luca Carey MD 09/04/241214 Electronically signed by: Luca Carey MD 09/04/241216 Discharge Summary Note Author Humberto [facility] Note Date/Time September 07, 2024 12:55pm [facility] [address] [place], [place] [id number] Discharge Summary Signed Patient: Trip Flores MR#: [id number] : 1985 Acct:[id number] Age: 38 ADM Date: 09/04/24 Loc: [id number] 315-[address]: Marissa Myers M.D. cc: Royer Hensley MD; Chris Grace DO; Marissa Myers MD~ DS: Admitting Diagnosis Discharge Date 09/07/2024 Admitting Diagnosis Abdominal pain DS: Discharge Diagnosis Discharge Diagnosis (1) Acute diverticulitis: Code(s): K57.92 - Diverticulitis of intestine, part unspecified, without perforation or abscess without bleeding Status: Acute DS: Summary Hospital Course Hospital Course: Acute sigmoid diverticulitis with microperforation Patient has been having left lower quadrant pain since a day prior to admission.. Patient has sudden onset abdomen pain, denies nausea vomiting Patient has leukocytosis continues to improve non operative management CT abdomen pelvis showed acute sigmoid diverticulitis with micro perforation Was treated with IV fluid and IV antibiotics Zosyn. General surgery was consulted. Patient improved. Advanced diet and tolerated a low-fiber diet. Antibiotic will be switched to oral and will be discharged home. Time Spent with Patient Time attestation: Total time spent providing and/or coordinating discharge services: 35 minutes Exam Narrative: GENERAL: Pleasant, in no acute distress. Well-nourished. - EYES: EOMI. Anicteric. - HENT: Moist mucous membranes. - LUNGS: Clear to auscultation bilateral ly, no wheezing, rhonchi, or rales. - CARDIOVASCULAR: Regular rate and rhyth m. No murmur. No JVD. - ABDOMEN: Soft, nontender and non-diste nded. No palpable masses. - EXTREMITIES: No edema. Peripheral puls es 2+. Non-tender. - NEUROLOGIC: No focal neurological defi cits. CN II-XII grossly intact. - PSYCHIATRIC: Awake, Alert and oriented x 3. Appropriate mood and affect. - SKIN: No rashes or lesions. Warm. - LYMPH: No cervical lymphadenopathy. DS: Data Data Completed and Pending Labs on day of discharge: Labs from last 24 hours 09/07/24 06:19 WBC 9.0 RBC 5.01 Hgb 15.8 Hct 44.2 MCV 88.2 MCH 31.5 MCHC 35.7 RDW 12.2 Plt Count 296 MPV 10.0 Sodium 141 Potassium 3.7 Chloride 102 Carbon Dioxide 29 Anion Gap 10 BUN 8 L Creatinine 0.90 Estim Creat Clear Calc 130 Estimated GFR > 60 Glucose 98 Calcium 9.2 Preliminary micro results at discharge 09/04/24 07:29 Blood Culture - Preliminary Blood 09/04/24 07:39 Blood Culture - Preliminary Blood Imaging Radiologist's impression: ITS Impressions Abdomen/Pelvis CT 09/04/24 06:38 Impression: Acute sigmoid diverticulitis with possible contained microperforation adjacent to the colon versus mild prominent diverticulum. No abscess. Discharge Plan Discharge Attending physician on discharge: Humberto Ventura Consulting providers: Luca Carey Discharging Clinician: Humberto Ventura Anticipated Discharge Date/Time: 09/07/24 11:41 Patient Disposition: Home, Self-Care Activity: as tolerated Diet: low fiber Patient Instructions: Antibiotic Form, Low Fiber Diet (GEN), Diverticulitis Diet (GEN) Stand Alone Forms: General Discharge Information Follow-up/Referrals: Donavon Reynolds MD [Physician] - 4 Weeks Chris Grace DO [Primary Care Provider] - 1 Week Discharge Medications: New amoxicillin-pot clavulanate 875-125 mg tablet 1 tablet PO Q12H Qty: 14 0RF Continued acetaminophen [Tylenol] 325 mg capsule 325 mg PO Q6H PRN (Reason: pain) ibuprofen [Advil] 200 mg tablet 200 mg PO Q6H PRN (Reason: pain) fluticasone propionate [Flonase Allergy Relief] 50 mcg/actuation spray,suspension 1 spray NASAL Q12H Qty: 18.2 1RF Rx Instructions: administer into each nostril Date of admission: 09/04/24 13:35 Primary Care Provider: Chris Grace Admitting Provider: Marissa Myers Attending physician on admission: Marissa Myers Condition: Stable This report may have been done utilizing a voice recognition system. Attempts have been made to correct errors. However, there may be uncorrected grammatical,spelling, and recognition errors present. Report Initialized date/time: Humberto Ventura MD 09/07/24 / 1141 Electronically signed by: Humberto Ventura MD 09/07/24 1255 History & Physical Note Author Marissa Myers [facility] Note Date/Time September 04, 2024 4:02pm [facility] [address] [place] [address] History & Physical Report Signed Patient: Trip Flores MR#: [id number] : 1985 Acct:[id number] Age: 38 ADM Date: 09/04/24 Loc: [id number] 315-[address]: Marissa Myers M.D. cc: Royer Hensley MD; Chris Grace DO; Marissa Myers MD~ H&P: HPI History of Present Illness Date/Time: 09/04/24 08:49 Chief Complaint: ABDOMEN PAIN Narrative: [age] years old gentleman without significant past medical history presentED with a chief complaint of abdomen pain. Patient started having acute abdomenpain yesterday, locating in left lower quadrant, is cramping pain. Patient denies nausea vomiting diarrhea. Patient also denies fever, chills, chest pain,cough, shortness of breath, headache, focal weakness. Patient came to ED for evaluation treatment. Upon arrival to ED, patient is afebrile, blood pressure stable, no O2 desaturation on room air. Labs showed leukocytosis white blood cell 16,800. Chemistry unremarkable. CT abdomen pelvis showed acute sigmoid diverticulitis with possible microperforation. Patient received Zosyn in the ED, your physician also consulted general surgeon. We admit patient for furtherevaluation and management Review of Systems Review of Systems: ROS negative except above PMFSH Past Medical History Medical History Broken arm Broken legs Chronic pain Hypertriglyceridemia Family History Family History Mother Patient's mother is in good health Father Patient's father is in good health Social History Social History Smoking packs per day: 1 Smoking cigarettes per day: 20.0 Smoking status: Current every day smoker Second hand tobacco smoke exposure: No Alcohol intake: never Substance use: never Do You Feel Safe in your Home?: Yes Lack of Transportation: No Lack of Food: Never True Current Housing: I Have Housing Concerned About Future Housing: No Difficulty Paying Gas/Electric Bills: No Difficulty Paying for Meds: No Currently Unemployed: No Education: Trade/Vocational Certificate Difficulty w/ Childcare or Family Care: No Spiritual care concerns: No Meds Home Medications and Allergies Home Medications Medication Instructions Recorded Confirmed Type acetaminophen 325 mg capsule 325 mg PO Q6H PRN pain 11/12/19 09/04/24 History (Tylenol) ibuprofen 200 mg tablet (Advil) 200 mg PO Q6H PRN pain 11/12/19 09/04/24 History fluticasone propionate 50 1 spray intranasal Q12H #18.2 mL 05/13/20 09/04/24 Rx mcg/actuation nasal spray,suspension (Flonase Allergy Relief) Allergies Allergy/AdvReac Type Severity Reaction Status Date / Time No Known Allergies Allergy Unverified 01/20/20 12:16 Vital Signs Vital Signs - 24 hr 09/04/24 05:28 09/04/24 07:46 09/04/24 07:46 Temperature 97.8 F Pulse Rate 72 83 Respiratory Rate 12 16 Blood Pressure 118/81 109/70 109/70 Pulse Oximetry 97 96 96 Oxygen Delivery Room Air 09/04/24 07:47 09/04/24 08:00 09/04/24 08:15 Temperature Pulse Rate 90 Respiratory Rate 15 Blood Pressure Pulse Oximetry 96 95 96 Oxygen Delivery Exam Narrative: GENERAL: Pleasant, in no acute distress. Well-nourished. - EYES: EOMI. Anicteric. - HENT: Moist mucous membranes. - LUNGS: Clear to auscultation bilateral ly, no wheezing, rhonchi, or rales. - CARDIOVASCULAR: Regular rate and rhyth m. No murmur. No JVD. - ABDOMEN: Soft, left lower quadrant te nder and non-distended. No palpable masses. - EXTREMITIES: No edema. Peripheral puls es 2+. Non-tender. - NEUROLOGIC: No focal neurological defi cits. CN II-XII grossly intact. - PSYCHIATRIC: Awake, Alert and oriented x 3. Appropriate mood and affect. - SKIN: No rashes or lesions. Warm. - LYMPH: No cervical lymphadenopathy. H&P: Results Labs Labs: Short CBC 09/04/24 Range/Units 05:42 WBC 16.8 H (4.5-10.0) K/mm3 Hgb 16.3 (14.0-18.0) g/dL Hct 45.9 (42.0-52.0) % Plt Count 249 (150-375) k/mm3 BMP 09/04/24 05:42 Sodium 139 Potassium 4.0 Chloride 103 Carbon Dioxide 25 BUN 14 Creatinine 0.80 Glucose 120 H Calcium 9.4 Liver Function 09/04/24 Range/Units 05:42 Total Bilirubin 1.4 H (0.2-1.3) mg/dL AST 23 (17-59) U/L ALT 34 (6-50) U/L Alkaline Phosphatase 71 (38-126) U/L Albumin 5.0 (3.5-5.1) g/dL Urine 09/04/24 Range/Units 05:42 Urine Color Yellow (Yellow) Urine Appearance Clear (Clear) Urine pH 5.0 (5.0-9.0) Ur Specific [place] 1.026 (1.001-1.035) Urine Protein Trace (Negative) mg/dL Urine Glucose (UA) Negative (Negative) mg/dL Assessment and Plan Assessment and plan (1) Acute diverticulitis: Code(s): K57.92 - Diverticulitis of intestine, part unspecified, without perforation or abscess without bleeding Status: Acute Plan Acute sigmoid diverticulitis with microperforation Patient has been having left lower quadrant pain since yesterday. Patient has sudden onset abdomen pain, denies nausea vomiting Patient has leukocytosis CT abdomen pelvis showed acute sigmoid diverticulitis with micro perforation Keep patient p.o. Start D5 lactated Ringer 125 mL/hour Received Zosyn in the ED, continue Zosyn IV Consult general surgeon, follow recommendation Optimize pain management Follow-up CBC BMP, correct electrolyte abnormality accordingly Hospitalist MIPS Advance Care Plan I have confirmed that the patient's Advanced Care Plan is present, code status is documented, or surrogate decision maker is listed in patient medical record.:Yes Medication Reconciliation I have utilized all available resources to obtain, update and review the patients current medications (includes all prescriptions, OTC, herbals, cannabis, and nutritional supplements).: Yes This report may have been done utilizing a voice recognition system. Attempts have been made to correct errors. However, there may be uncorrected grammatical,spelling, and recognition errors present. Report Initialized date/time: Marissa Myers MD 09/04/24901 Electronically signed by: Marissa Myers MD 09/04/24 1602 Progress Note Author Royer Vera [facility] Note Date/Time September 04, 2024 9:12pm [facility] [address] [place] [address] Emergency Room Visit Note Signed Patient: Trip Flores MR#: [id number] : 1985 Acct:[id number] Age: 38 ADM Date: 09/04/24 Loc: [id number] 315-[address]: Marissa Myers M.D. cc: Royer Hensley MD; Chris Grace DO~ HPI - General Adult General Chief complaint: Abdominal Pain Stated complaint: Lower abdominal pain Time Seen by Provider: 09/04/24 05:37 History of Present Illness HPI narrative: Patient 38 and 1 presents emergency department with chief complaint of abdominal pain. Patient reports the pain began yesterday reports some lower quadrants of his abdomen the patient reports feels like a cramping like pain in sharp as well the patient denies nausea denies vomiting denies diarrhea reports no prior surgical history of the abdomen the patient reports no other medical conditions. Related Data Home Medications Medication Instructions Recorded Confirmed acetaminophen 325 mg capsule 325 mg PO Q6H PRN 11/12/19 (Tylenol) ibuprofen 200 mg tablet (Advil) 200 mg PO Q6H PRN 11/12/19 Allergies Allergy/AdvReac Type Severity Reaction Status Date / Time No Known Allergies Allergy Unverified 01/20/20 12:16 Review of Systems Review of Systems: A 10 system review of systems was completed on the patient and is negative except for what is stated in the HPI. Nursing and ancillary documentation was reviewed. [facility] Past Medical History Medical History Broken arm Broken legs Chronic pain Hypertriglyceridemia Family History Family History Mother Patient's mother is in good health Father Patient's father is in good health Social History Social History Smoking packs per day: 1 Smoking cigarettes per day: 20.0 Smoking status: Current every day smoker Second hand tobacco smoke exposure: No Alcohol intake: never Substance use: never Exam Narrative: GENERAL: Well-appearing, well-nourished, and in no acute distress. HEAD: Normocephalic, atraumatic. EYES: PERRLA and EOMI. ENT: Nares clear, no rhinorrhea or epistaxis. Mucous membranes moist. NECK: Supple. CHEST: Clear to auscultation. No respiratory distress. HEART: Regular rate and rhythm. No murmur heard. Normal peripheral pulses. ABDOMEN: Soft, Tenderness to palpation in bilateral lower quadrants, nondistended, normal active bowel sounds. EXTREMITIES: Normal range of motion. No edema. SKIN: Warm, dry, no rash. NEURO: No focal deficits. Alert and oriented x3. PSYCH: Normal mood and affect. Course Vital Signs Vital signs: Vital Signs Temperature 36.6 C 09/04/24 05:28 Pulse Rate 72 09/04/24 05:28 Respiratory Rate 12 09/04/24 05:28 Blood Pressure 118/81 09/04/24 05:28 Pulse Oximetry 97 09/04/24 05:28 Oxygen Delivery Room Air 09/04/24 05:28 Temperature 36.6 C 09/04/24 05:28 Pulse Rate 72 09/04/24 05:28 Respiratory Rate 12 09/04/24 05:28 Blood Pressure 118/81 09/04/24 05:28 Pulse Oximetry 97 09/04/24 05:28 Oxygen Delivery Room Air 09/04/24 05:28 Medical Decision Making MDM Narrative Medical decision making narrative: differential diagnosis includes intra-abdominal infection, diverticulitis, colitis, appendicitis CT scan of the abdomen pelvis showed evidence of acute diverticulitis with potential localized perforation laboratory studies showed a white count of 16.8 electrolytes are within normal limits case was discussed with Dr. Carey who will consult on the patient and the patient is be kept NPO Vital Signs Vital Signs: Vital Signs Temperature 36.6 C 09/04/24 05:28 Pulse Rate 72 09/04/24 05:28 Respiratory Rate 12 09/04/24 05:28 Blood Pressure 118/81 09/04/24 05:28 Pulse Oximetry 97 09/04/24 05:28 Oxygen Delivery Room Air 09/04/24 05:28 Temperature 36.6 C 09/04/24 05:28 Pulse Rate 72 09/04/24 05:28 Respiratory Rate 12 09/04/24 05:28 Blood Pressure 118/81 09/04/24 05:28 Pulse Oximetry 97 09/04/24 05:28 Oxygen Delivery Room Air 09/04/24 05:28 Lab Data 09/04/24 05:42 09/04/24 05:42 Labs: Lab Results 09/04/24 Range/Units 05:42 WBC 16.8 H (4.5-10.0) K/mm3 RBC 5.30 (4.6-6.20) M/mm3 Hgb 16.3 (14.0-18.0) g/dL Hct 45.9 (42.0-52.0) % MCV 86.6 (80-100) fl MCH 30.8 (26-34) pg MCHC 35.5 (32-36) g/dl RDW 12.2 (11.5-14.5) % Plt Count 249 (150-375) k/mm3 MPV 10.3 (7.4-10.4) fl Immature Gran % (Auto) 0.4 (0-0.5) % Neut % (Auto) 77.9 H (45.5-73.1) % Lymph % (Auto) 12.1 L (18.3-44.2) % [place] % (Auto) 9.0 H (2.6-8.5) % Eos % (Auto) 0.1 (0-4.4) % Baso % (Auto) 0.5 (0.2-1.2) % Lymph # (Auto) 2.02 (0.9-3.2) K/mm3 [place] # (Auto) 1.5 H (0.1-0.6) K/mm3 Eos # (Auto) 0.0 (0-0.3) K/mm3 Baso # (Auto) 0.1 (0.0-0.1) K/mm3 Abs Immat Gran (auto) 0.06 H (0.00-0.031) K/mm3 Absolute Neuts (auto) 13.1 H (1.3-6.7) K/mm3 Absolute Nucleated RBC 0.000 (0.0-0.012) K/mm3 Nucleated RBC % 0.0 (0.0-0.2) % Sodium 139 (137-145) mmol/L Potassium 4.0 (3.4-5.0) mmol/L Chloride 103 (98-107) mmol/L Carbon Dioxide 25 (22-30) mmol/L Anion Gap 11 (4-12) mmol/L BUN 14 (9-20) mg/dL Creatinine 0.80 (0.7-1.3) mg/dL Estim Creat Clear Calc 145 ml/min Estimated GFR > 60 (59 - ) Glucose 120 H (65-110) mg/dL Calcium 9.4 (8.4-10.2) mg/dL Total Bilirubin 1.4 H (0.2-1.3) mg/dL AST 23 (17-59) U/L ALT 34 (6-50) U/L Alkaline Phosphatase 71 (38-126) U/L Total Protein 9.0 H (6.3-8.2) g/dL Albumin 5.0 (3.5-5.1) g/dL Lipase 35 (23-300) U/L Urine Color Yellow (Yellow) Urine Appearance Clear (Clear) Urine pH 5.0 (5.0-9.0) Ur Specific [place] 1.026 (1.001-1.035) Urine Protein Trace (Negative) mg/dL Urine Glucose (UA) Negative (Negative) mg/dL Urine Ketones Trace H (Negative) mg/dL Ur Blood (Man) Trace (Negative) Urine Nitrate Negative (Negative) Urine Bilirubin Negative (Negative) Urine Urobilinogen 1.0 (<2.0) mg/dL Leukocyte Esterase Rfl Negative (Negative) DIANNE/UL Urine RBC 0-2 (0-2) /hpf Urine WBC 0-5 (0-3) /hpf Ur Squamous Epith Cells Occasional (Few) /hpf Urine Bacteria None seen /hpf Urine Casts 0-2 Discharge Plan Discharge Clinical Impression: Acute diverticulitis Patient Disposition: Still a Patient Condition: Stable Instructions: Antibiotic Form Prescriptions: No Action acetaminophen [Tylenol] 325 mg capsule 325 mg PO Q6H PRN ibuprofen [Advil] 200 mg tablet 200 mg PO Q6H PRN fluticasone propionate [Flonase Allergy Relief] 50 mcg/actuation spray,suspension 1 spray NASAL Q12H Qty: 18.2 1RF Rx Instructions: administer into each nostril Follow-up/Referrals: Chris Grace DO [Primary Care Provider] - Time of Disposition: 06:58 This report may have been done utilizing a voice recognition system. Attempts have been made to correct errors. However, there may be uncorrected grammatical,spelling, and recognition errors present. Report Initialized date/time: Royer Hensley MD 09/04/24549 Electronically signed by: Royer Hensley MD 09/04/242111 Progress Note Author [facility] Note Date/Time September 05, 2024 10:[address] [place] [address] [address] [place] [address] Progress Note Signed Patient: Trip Flores MR#: [id number] : 1985 Acct:[id number] Age: 38 ADM Date: 09/04/24 Loc: [id number] 315-[address]: Marissa Myers M.D. cc: ~ Progress Note: A&P Assessment and Plan (1) Acute diverticulitis: Code(s): K57.92 - Diverticulitis of intestine, part unspecified, without perforation or abscess without bleeding Status: Acute Assessment and Plan: Improving with non operative management with IV antibiotics and NPO. His white blood count is down to 11,000 today and his abdominal exam is much improved. Wewill go ahead start him on some clear liquids today. Continue with IV antibiotics for now. Hopefully can advance his diet further tomorrow and probably home this weekend with a additional course of oral antibiotics at home. He has responded non operative management and I do not think he is going to need any acute surgical management at this time. Subjective Date/time seen: 09/05/24 10:52 Interval history: Patient feels better today. Less lower abdominal pain. No nausea or vomiting. He is passing some flatus but had no bowel movement yet. White blood count was [address] yesterday. Is down to 11,000 today. No fever or tachycardia. Exam GI: Other: Abdomen is soft and nondistended. Mild tenderness to palpation the suprapubic region abdomen. No guarding or rebound tenderness. Objective Data Vital Signs Vital Signs: Vital Signs - 24 hr 09/04/24 14:00 09/04/24 15:03 09/04/24 20:40 Temperature 37.4 C 37.4 C Pulse Rate 81 81 Respiratory Rate 16 16 Blood Pressure 103/67 110/75 Pulse Oximetry 96 97 Oxygen Delivery Room Air Fraction of Inspired Oxygen 09/04/24 20:00 09/04/24 22:55 09/05/24 05:47 Temperature 36.9 C Pulse Rate 66 80 Respiratory Rate 19 16 Blood Pressure 110/78 Pulse Oximetry 95 96 Oxygen Delivery Room Air CPAP Fraction of Inspired Oxygen 09/05/24 08:47 09/05/24 08:10 Temperature Pulse Rate Respiratory Rate Blood Pressure Pulse Oximetry 96 Oxygen Delivery Room Air Room Air Fraction of Inspired Oxygen 21 Intake/Output Intake/Output: Intake & Output 09/02/24 09/03/24 09/04/24 09/05/24 23:59 23:59 23:59 23:59 Intake Total 150 2110 Balance 150 2110 Meds/Results Medications: Active Medications Generic Name Dose Route Start Last Admin Trade Name Freq PRN Reason Stop Dose Admin Piperacillin/Tazobactam/Dextrose 3.375 gm in 50 mls @ 100 mls/hr 09/04/24 12:00 09/05/24 05:19 Zosyn 3.375 Gm/Ns 50 Ml IVPB 100 mls/hr Q6H TOMMIE Administration Dextrose/Lactated Ringer's 1,000 mls @ 125 mls/hr 09/04/24 09:00 09/05/24 05:19 Dextrose 5%/Lactated Ringers IV CONT 125 mls/hr .Q8H TOMMIE Administration Morphine Sulfate 4 mg 09/04/24 07:17 09/04/24 12:55 Morphine Sulfate (*Crx) 4 Mg/Ml Inj IV PUSH 4 mg Q2H PRN Administration Pain Rated 7-10 Ondansetron HCl 4 mg 09/04/24 07:17 09/04/24 17:26 Ondansetron Inj 4 Mg/2 Ml Vial IV PUSH 4 mg Q4H PRN Administration Nausea Radiology Results: ITS Impressions Abdomen/Pelvis CT 09/04/24 06:38 Impression: Acute sigmoid diverticulitis with possible contained microperforation adjacent to the colon versus mild prominent diverticulum. No abscess. Labs Labs: Laboratory Results - last 24 hr 09/05/24 08:37 WBC 11.1 H RBC 4.99 Hgb 15.3 Hct 44.2 MCV 88.6 MCH 30.7 MCHC 34.6 RDW 12.2 Plt Count 225 MPV 9.9 Immature Gran % (Auto) 0.4 Neut % (Auto) 69.0 Lymph % (Auto) 17.4 L [place] % (Auto) 11.3 H Eos % (Auto) 1.1 Baso % (Auto) 0.8 Lymph # (Auto) 1.93 [place] # (Auto) 1.3 H Eos # (Auto) 0.1 Baso # (Auto) 0.1 Abs Immat Gran (auto) 0.04 H Absolute Neuts (auto) 7.7 H Absolute Nucleated RBC 0.000 Nucleated RBC % 0.0 Sodium 138 Potassium 4.3 Chloride 99 Carbon Dioxide 32 H Anion Gap 7 BUN 9 D Creatinine 0.70 Estim Creat Clear Calc 164 Estimated GFR > 60 Glucose 116 H Calcium 9.2 This report may have been done utilizing a voice recognition system. Attempts have been made to correct errors. However, there may be uncorrected grammatical,spelling, and recognition errors present. Report Initialized date/time: Luca Carey MD 09/05/241053 Electronically signed by: Luca Carey MD 09/05/241053 Progress Note Author Humberto [facility] Note Date/Time September 05, 2024 11:[address] [place] [address] [address] [place], [place] [id number] Hospitalist Progress Note Signed Patient: Trip Flores MR#: [id number] : 1985 Acct:[id number] Age: 38 ADM Date: 09/04/24 Loc: [id number] 315- Attending Dr: Marissa Myers M.D. cc: ~ Progress Note: A&P Assessment and Plan (1) Acute diverticulitis: Code(s): K57.92 - Diverticulitis of intestine, part unspecified, without perforation or abscess without bleeding Status: Acute Plan Acute sigmoid diverticulitis with microperforation Patient has been having left lower quadrant pain since yesterday. Patient has sudden onset abdomen pain, denies nausea vomiting Patient has leukocytosis continues to improve non operative management CT abdomen pelvis showed acute sigmoid diverticulitis with micro perforation On D5 lactated Ringer 125 mL/hour Received Zosyn in the ED, continue Zosyn IV Consult general surgeon, follow recommendation Optimize pain management Follow-up CBC BMP, correct electrolyte abnormality accordingly Subjective Date/time seen: 09/05/24 11:53 Interval history: No overnight events. Feels better. Very mild abdominal discomfort in the lowerabdomen. No nausea vomiting. Has not required IV pain medication since yesterday Review of Systems Review of Systems: All systems reviewed & are unremarkable except as noted in HPI and below Exam Narrative: GENERAL: Pleasant, in no acute distress. Well-nourished. - EYES: EOMI. Anicteric. - HENT: Moist mucous membranes. - LUNGS: Clear to auscultation bilateral ly, no wheezing, rhonchi, or rales. - CARDIOVASCULAR: Regular rate and rhyth m. No murmur. No JVD. - ABDOMEN: Soft, left lower quadrant te nder mild and non-distended. No palpable masses. - EXTREMITIES: No edema. Peripheral puls es 2+. Non-tender. - NEUROLOGIC: No focal neurological defi cits. CN II-XII grossly intact. - PSYCHIATRIC: Awake, Alert and oriented x 3. Appropriate mood and affect. - SKIN: No rashes or lesions. Warm. - LYMPH: No cervical lymphadenopathy. Objective Data Vital Signs Vital Signs: Vital Signs - 24 hr 09/04/24 14:00 09/04/24 15:03 09/04/24 20:40 Temperature 99.4 F 99.4 F Pulse Rate 81 81 Respiratory Rate 16 16 Blood Pressure 103/67 110/75 Pulse Oximetry 96 97 Oxygen Delivery Room Air Fraction of Inspired Oxygen 09/04/24 20:00 09/04/24 22:55 09/05/24 05:47 Temperature 98.5 F Pulse Rate 66 80 Respiratory Rate 19 16 Blood Pressure 110/78 Pulse Oximetry 95 96 Oxygen Delivery Room Air CPAP Fraction of Inspired Oxygen 09/05/24 08:47 09/05/24 08:10 Temperature Pulse Rate Respiratory Rate Blood Pressure Pulse Oximetry 96 Oxygen Delivery Room Air Room Air Fraction of Inspired Oxygen 21 Intake/Output Intake/Output: Intake & Output 09/02/24 09/03/24 09/04/24 09/05/24 23:59 23:59 23:59 23:59 Intake Total 150 2891.3 Balance 150 2891.3 Meds/Results Medications: Active Medications Generic Name Dose Route Start Last Admin Trade Name Freq PRN Reason Stop Dose Admin Piperacillin/Tazobactam/Dextrose 3.375 gm in 50 mls @ 100 mls/hr 09/04/24 12:00 09/05/24 11:39 Zosyn 3.375 Gm/Ns 50 Ml IVPB 100 mls/hr Q6H TOMMIE Administration Dextrose/Lactated Ringer's 1,000 mls @ 125 mls/hr 09/04/24 09:00 09/05/24 11:10 Dextrose 5%/Lactated Ringers IV CONT 125 mls/hr .Q8H TOMMIE Administration Morphine Sulfate 4 mg 09/04/24 07:17 09/04/24 12:55 Morphine Sulfate (*Crx) 4 Mg/Ml Inj IV PUSH 4 mg Q2H PRN Administration Pain Rated 7-10 Ondansetron HCl 4 mg 09/04/24 07:17 09/04/24 17:26 Ondansetron Inj 4 Mg/2 Ml Vial IV PUSH 4 mg Q4H PRN Administration Nausea Radiology Results: ITS Impressions Abdomen/Pelvis CT 09/04/24 06:38 Impression: Acute sigmoid diverticulitis with possible contained microperforation adjacent to the colon versus mild prominent diverticulum. No abscess. Labs Labs: Laboratory Results - last 24 hr 09/05/24 08:37 WBC 11.1 H RBC 4.99 Hgb 15.3 Hct 44.2 MCV 88.6 MCH 30.7 MCHC 34.6 RDW 12.2 Plt Count 225 MPV 9.9 Immature Gran % (Auto) 0.4 Neut % (Auto) 69.0 Lymph % (Auto) 17.4 L Cavalier % (Auto) 11.3 H Eos % (Auto) 1.1 Baso % (Auto) 0.8 Lymph # (Auto) 1.93 Cavalier # (Auto) 1.3 H Eos # (Auto) 0.1 Baso # (Auto) 0.1 Abs Immat Gran (auto) 0.04 H Absolute Neuts (auto) 7.7 H Absolute Nucleated RBC 0.000 Nucleated RBC % 0.0 Sodium 138 Potassium 4.3 Chloride 99 Carbon Dioxide 32 H Anion Gap 7 BUN 9 D Creatinine 0.70 Estim Creat Clear Calc 164 Estimated GFR > 60 Glucose 116 H Calcium 9.2 This report may have been done utilizing a voice recognition system. Attempts have been made to correct errors. However, there may be uncorrected grammatical,spelling, and recognition errors present. Report Initialized date/time: Humberto Ventura MD 09/05/241154 Electronically signed by: Humberto Ventura MD 09/05/241153 Progress Note Author [facility] Note Date/Time September 06, 2024 10:[address] [place] [address] [address] [place] [address] General Surgery Progress Note Signed Patient: Trip Flores MR#: [id number] : 1985 Acct:[id number] Age: 38 ADM Date: 09/04/24 Loc: [id number] 315-[address]: Marissa Myers M.D. cc: ~ Progress Note: A&P Assessment and Plan (1) Acute diverticulitis: Code(s): K57.92 - Diverticulitis of intestine, part unspecified, without perforation or abscess without bleeding Status: Acute Assessment and Plan: Improving significantly. No pain and no tenderness. Continue IV antibiotics. Advanced to low-fiber diet. If continues to improve, home tomorrow on oral antibiotics and low-fiber diet. Subjective Subjective Date/Time Seen: 09/06/24 10:47 Patient reports: feels better, pain is less (No abdominal pain) and tolerating liquids well Review of Systems Review of Systems: All systems reviewed & are unremarkable except as noted in HPI and below (HPI) Exam GI: Inspection: normal to inspection and non-distended GI Palp: Yes Soft topalpation, No Tenderness to palpation present (GI) and No Guarding due to palpation present (GI) Objective Data Vital Signs Vital Signs: Vital Signs - 24 hr 09/05/24 14:00 09/05/24 22:00 09/05/24 20:00 Temperature 36.6 C 36.7 C Pulse Rate 96 73 Respiratory Rate 18 18 Blood Pressure 128/81 125/86 Pulse Oximetry 80 L 97 Oxygen Delivery Room Air 09/06/24 06:00 09/06/24 08:00 Temperature Pulse Rate 66 Respiratory Rate 16 Blood Pressure 119/80 Pulse Oximetry 97 Oxygen Delivery Room Air Intake/Output Intake/Output: Intake & Output 09/03/24 09/04/24 09/05/24 09/06/24 23:59 23:59 23:59 23:59 Intake Total 150 3991.3 590 Balance 150 3991.3 590 Meds/Results Medications: Active Medications Generic Name Dose Route Start Last Admin Trade Name Freq PRN Reason Stop Dose Admin Piperacillin/Tazobactam/Dextrose 3.375 gm in 50 mls @ 100 mls/hr 09/04/24 12:00 09/06/24 06:24 Zosyn 3.375 Gm/Ns 50 Ml IVPB Infused Q6H TOMMIE Infusion Morphine Sulfate 4 mg 09/04/24 07:17 09/04/24 12:55 Morphine Sulfate (*Crx) 4 Mg/Ml Inj IV PUSH 4 mg Q2H PRN Administration Pain Rated 7-10 Ondansetron HCl 4 mg 09/04/24 07:17 09/04/24 17:26 Ondansetron Inj 4 Mg/2 Ml Vial IV PUSH 4 mg Q4H PRN Administration Nausea Radiology Results: ITS Impressions Abdomen/Pelvis CT 09/04/24 06:38 Impression: Acute sigmoid diverticulitis with possible contained microperforation adjacent to the colon versus mild prominent diverticulum. No abscess. Labs Labs: Laboratory Results - last 24 hr 09/06/24 06:27 WBC 8.4 RBC 5.06 Hgb 15.4 Hct 45.1 MCV 89.1 MCH 30.4 MCHC 34.1 RDW 12.3 Plt Count 246 MPV 10.1 Immature Gran % (Auto) 0.5 Neut % (Auto) 62.8 Lymph % (Auto) 23.6 Cavalier % (Auto) 10.2 H Eos % (Auto) 2.1 Baso % (Auto) 0.8 Lymph # (Auto) 1.99 Cavalier # (Auto) 0.9 H Eos # (Auto) 0.2 Baso # (Auto) 0.1 Abs Immat Gran (auto) 0.04 H Absolute Neuts (auto) 5.3 Absolute Nucleated RBC 0.000 Nucleated RBC % 0.0 Sodium 139 Potassium 4.0 Chloride 100 Carbon Dioxide 29 Anion Gap 10 BUN 7 L Creatinine 0.80 Estim Creat Clear Calc 145 Estimated GFR > 60 Glucose 104 Calcium 9.2 Magnesium 2.4 H Total Bilirubin 1.3 AST 30 ALT 51 H Alkaline Phosphatase 70 Total Protein 8.0 Albumin 4.4 This report may have been done utilizing a voice recognition system. Attempts have been made to correct errors. However, there may be uncorrected grammatical,spelling, and recognition errors present. Report Initialized date/time: Alverto Golden MD 09/06/241048 Electronically signed by: Alverto Golden MD 09/06/241048 Progress Note Author Humberto [facility] Note Date/Time September 06, 2024 1:26pm [facility] [address] [place] [address] Hospitalist Progress Note Signed Patient: Trip Flores MR#: [id number] : 1985 Acct:[id number] Age: 38 ADM Date: 09/04/24 Loc: [id number] 315-[address]: Marissa Myers M.D. cc: ~ Progress Note: A&P Assessment and Plan (1) Acute diverticulitis: Code(s): K57.92 - Diverticulitis of intestine, part unspecified, without perforation or abscess without bleeding Status: Acute Plan Acute sigmoid diverticulitis with microperforation Patient has been having left lower quadrant pain since yesterday. Patient has sudden onset abdomen pain, denies nausea vomiting Patient has leukocytosis continues to improve non operative management CT abdomen pelvis showed acute sigmoid diverticulitis with micro perforation On D5 lactated Ringer 125 mL/hour Received Zosyn in the ED, continue Zosyn IV Consult general surgeon, follow recommendation Optimize pain management Advance diet If tolerated home tomorrow on oral antibiotics. Will discontinue IV fluid Subjective Date/time seen: 09/06/24 13:25 Interval history: No overnight events. No further pain. Tolerated clear liquid. No nausea vomiting. Review of Systems Review of Systems: All systems reviewed & are unremarkable except as noted in HPI and below Exam Narrative: GENERAL: Pleasant, in no acute distress. Well-nourished. - EYES: EOMI. Anicteric. - HENT: Moist mucous membranes. - LUNGS: Clear to auscultation bilateral ly, no wheezing, rhonchi, or rales. - CARDIOVASCULAR: Regular rate and rhyth m. No murmur. No JVD. - ABDOMEN: Soft, left lower quadrant te nder mild and non-distended. No palpable masses. - EXTREMITIES: No edema. Peripheral puls es 2+. Non-tender. - NEUROLOGIC: No focal neurological defi cits. CN II-XII grossly intact. - PSYCHIATRIC: Awake, Alert and oriented x 3. Appropriate mood and affect. - SKIN: No rashes or lesions. Warm. - LYMPH: No cervical lymphadenopathy. Objective Data Vital Signs Vital Signs: Vital Signs - 24 hr 09/05/24 14:00 09/05/24 22:00 09/05/24 20:00 Temperature 97.9 F 98.1 F Pulse Rate 96 73 Respiratory Rate 18 18 Blood Pressure 128/81 125/86 Pulse Oximetry 80 L 97 Oxygen Delivery Room Air 09/06/24 06:00 09/06/24 08:00 Temperature Pulse Rate 66 Respiratory Rate 16 Blood Pressure 119/80 Pulse Oximetry 97 Oxygen Delivery Room Air Intake/Output Intake/Output: Intake & Output 09/03/24 09/04/24 09/05/24 09/06/24 23:59 23:59 23:59 23:59 Intake Total 150 3991.3 590 Balance 150 3991.3 590 Meds/Results Medications: Active Medications Generic Name Dose Route Start Last Admin Trade Name Freq PRN Reason Stop Dose Admin Piperacillin/Tazobactam/Dextrose 3.375 gm in 50 mls @ 100 mls/hr 09/04/24 12:00 09/06/24 12:06 Zosyn 3.375 Gm/Ns 50 Ml IVPB 100 mls/hr Q6H TOMMIE Administration Morphine Sulfate 4 mg 09/04/24 07:17 09/04/24 12:55 Morphine Sulfate (*Crx) 4 Mg/Ml Inj IV PUSH 4 mg Q2H PRN Administration Pain Rated 7-10 Ondansetron HCl 4 mg 09/04/24 07:17 09/04/24 17:26 Ondansetron Inj 4 Mg/2 Ml Vial IV PUSH 4 mg Q4H PRN Administration Nausea Radiology Results: ITS Impressions Abdomen/Pelvis CT 09/04/24 06:38 Impression: Acute sigmoid diverticulitis with possible contained microperforation adjacent to the colon versus mild prominent diverticulum. No abscess. Labs Labs: Laboratory Results - last 24 hr 09/06/24 06:27 WBC 8.4 RBC 5.06 Hgb 15.4 Hct 45.1 MCV 89.1 MCH 30.4 MCHC 34.1 RDW 12.3 Plt Count 246 MPV 10.1 Immature Gran % (Auto) 0.5 Neut % (Auto) 62.8 Lymph % (Auto) 23.6 Cavalier % (Auto) 10.2 H Eos % (Auto) 2.1 Baso % (Auto) 0.8 Lymph # (Auto) 1.99 Cavalier # (Auto) 0.9 H Eos # (Auto) 0.2 Baso # (Auto) 0.1 Abs Immat Gran (auto) 0.04 H Absolute Neuts (auto) 5.3 Absolute Nucleated RBC 0.000 Nucleated RBC % 0.0 Sodium 139 Potassium 4.0 Chloride 100 Carbon Dioxide 29 Anion Gap 10 BUN 7 L Creatinine 0.80 Estim Creat Clear Calc 145 Estimated GFR > 60 Glucose 104 Calcium 9.2 Magnesium 2.4 H Total Bilirubin 1.3 AST 30 ALT 51 H Alkaline Phosphatase 70 Total Protein 8.0 Albumin 4.4 This report may have been done utilizing a voice recognition system. Attempts have been made to correct errors. However, there may be uncorrected grammatical,spelling, and recognition errors present. Report Initialized date/time: Humberto Ventura MD 09/06/241325 Electronically signed by: Humberto Ventura MD 09/06/241325 Progress Note Author [facility] Note Date/Time September 07, 2024 1:10pm [facility] [address] [place] [address] General Surgery Progress Note Signed Patient: Trip Flores MR#: [id number] : 1985 Acct:[id number] Age: 38 ADM Date: 09/04/24 Loc: [id number] 315-[address]: Marissa Myers M.D. cc: ~ Progress Note: A&P Assessment and Plan (1) Acute diverticulitis: Code(s): K57.92 - Diverticulitis of intestine, part unspecified, without perforation or abscess without bleeding Status: Acute Assessment and Plan: doing well. Okay to discharge on low-fiber diet. Follow-up with Dr. Carey in 2weeks. Subjective Subjective Date/Time Seen: 09/07/24 13:08 Patient reports: no new complaints, feels better, tolerating a regular diet, bowel movement and afebrile Review of Systems Review of Systems: All systems reviewed & are unremarkable except as noted in HPI and below (HPI) Exam Const: General: comfortable and no acute distress Orientation/consciousness: patient oriented x3 GI: GI Palp: Yes Soft to palpation, No Tenderness to palpation present (GI), No Guarding due to palpation present (GI) and No Rebound tenderness present Auscultation: normal bowel sounds Neuro: General: patient oriented x3 and no focal motor deficits Psych: Affect: normal affect Insight: Good insight present (Psych) Judgement: Good judgement present (Psych) Objective Data Vital Signs Vital Signs: Vital Signs - 24 hr 09/06/24 14:00 09/06/24 20:00 09/06/24 21:25 Temperature 36.3 C L 36.7 C Pulse Rate 59 L 75 Respiratory Rate 18 16 Blood Pressure 127/69 116/81 Pulse Oximetry 97 96 Oxygen Delivery Room Air 09/07/24 05:16 09/07/24 08:00 Temperature 36.4 C Pulse Rate 81 Respiratory Rate 16 Blood Pressure 132/91 H Pulse Oximetry 100 Oxygen Delivery Room Air Intake/Output Intake/Output: Intake & Output 09/04/24 09/05/24 09/06/24 09/07/24 23:59 23:59 23:59 23:59 Intake Total 150 3991.3 1220 790 Balance 150 3991.3 1220 790 Meds/Results Medications: Active Medications Generic Name Dose Route Start Last Admin Trade Name Freq PRN Reason Stop Dose Admin Piperacillin/Tazobactam/Dextrose 3.375 gm in 50 mls @ 100 mls/hr 09/04/24 12:00 09/07/24 05:16 Zosyn 3.375 Gm/Ns 50 Ml IVPB 100 mls/hr Q6H TOMMIE Administration Morphine Sulfate 4 mg 09/04/24 07:17 09/04/24 12:55 Morphine Sulfate (*Crx) 4 Mg/Ml Inj IV PUSH 4 mg Q2H PRN Administration Pain Rated 7-10 Ondansetron HCl 4 mg 09/04/24 07:17 09/04/24 17:26 Ondansetron Inj 4 Mg/2 Ml Vial IV PUSH 4 mg Q4H PRN Administration Nausea Radiology Results: ITS Impressions Abdomen/Pelvis CT 09/04/24 06:38 Impression: Acute sigmoid diverticulitis with possible contained microperforation adjacent to the colon versus mild prominent diverticulum. No abscess. Labs Labs: Laboratory Results - last 24 hr 09/07/24 06:19 WBC 9.0 RBC 5.01 Hgb 15.8 Hct 44.2 MCV 88.2 MCH 31.5 MCHC 35.7 RDW 12.2 Plt Count 296 MPV 10.0 Sodium 141 Potassium 3.7 Chloride 102 Carbon Dioxide 29 Anion Gap 10 BUN 8 L Creatinine 0.90 Estim Creat Clear Calc 130 Estimated GFR > 60 Glucose 98 Calcium 9.2 This report may have been done utilizing a voice recognition system. Attempts have been made to correct errors. However, there may be uncorrected grammatical,spelling, and recognition errors present. Report Initialized date/time: Alverto Golden MD 09/07/24 / 1310 Electronically signed by: Alverto Golden MD 09/07/24 1313
--- OUTSIDE RECORDS SUMMARY | 2024-11-01 01:11 | XMS_ITS | Continuity of Care Document ---
Author Organization [facility] Address [address] [place] [address] Phone Care Team Providers Care Beam Worker Name Role Phone Magdy Clarke Unavailable Unavailable Procedures Procedure Date Therapeutic Exercise Therapeutic Activities Neuromuscular Re-Ed Therapeutic Exercise Therapeutic Activities Neuromuscular Re-Ed Therapeutic Exercise Therapeutic Activities Neuromuscular Re-Ed Therapeutic Exercise Therapeutic Activities Neuromuscular Re-Ed Manual Therapy PT Evaluation Low Complexity Therapeutic Exercise Neuromuscular Re-Ed Manual Therapy Advance Directives Directive Yes / No Effective Date File Name No Information Encounters Encounter Description Practice Location Reason(s) For Visit Diagnoses Date Provider Providers Copied on Encounter [facility], [address], [id number], tel:[phone] [place] No Information 7 Bryce Curarn. [address], [address], [place], [address], [place]. tel: [phone] Referring Provider: Royer Calohun, [address], [place], [address]. tel:[phone] [facility], [address], [id number], tel:[phone] [place] No Information 7 Muehl Magdy. [address], [address], [address], [place]. tel:[phone] Referring Provider: Royer Calhoun, [address], [place], [place], [facility]. [phone] [place] [address], [id number], [place] tel:[phone] [place] No Information 7 Muehl Magdy. [address] [place] [address], [address], [address], [place]. tel:[phone] Referring Provider: Royer Calhoun, [address], [place], [facility]. tel:[phone] [place] [address], [id number], [place] tel:[phone] [place] No Information 7 Muehl Magdy. [address] [place] [address], [address], [place], [facility], [place]. tel:[phone] Referring Provider: Royer Calhoun, [facility] [address], [place], [address]. tel:[phone] [place] [address], [id number], [place] tel:[phone] [place] CervicalgiaPai n in thoracic spineSegmental and somatic dysfunction of cervical region 7 Muehl Magdy. [address] [place] [address], [address], [address], [place]. tel:[phone] Referring Provider: Royer Calhoun, [address] [facility] [address], [address]. tel:[phone] Family History Family Member Type Diagnosis Age At Onset No Information Payers Payer name Insurance type Covered libertarian ID Authoriza tion(s) [employer] SP [id number] Social History Type Description Quantity Date Captured Comments Sex Male Smoking Status No Information Chief Complaint And Reason For Visit No Information Reason For Referral Reason For Referral No Information History Of Present Illness Encounter Date Complaint History Of Prese nt Illness No Information Functional Status Date Functional Assessmen t No Information Instructions Date Instruction Additional Infor mation No Information Assessments Type Assessment Date No Information Patient Care Teams Name Effective Dates (start - stop) Status Members No Information
--- OUTSIDE RECORDS SUMMARY | 2024-11-01 02:23 | XMS_ITS | Continuity of Care Document ---
Author Organization [facility] Address [address] [place] [address] Phone Care Team Providers Care Organic Section Technical Lead Name Role Phone Magdy Clarke Unavailable Unavailable [...] Diagnoses Date Provider Providers Copied on Encounter [facility], [address], [id number], tel:[phone] [place] No Information 7 Bryce Curran. [address] [facility], [address], [place], [address], [place]. tel: [phone] Referring Provider: Royer Calhoun, [address] [facility] [address], [place], [address]. tel:[phone] [facility], [address], [id number], tel:[phone] [place] No Information 7 Muehl Magdy. [address] [facility], [address], [place], [address], [place]. tel:[phone] Referring Provider: Royer Calhoun, [address] [facility] [address], [place], [place], [facility]. [phone] [place] [address], [id number], [place] tel:[phone] [place] No Information 7 Muehl Magdy. [address] [place] [address], [address], [address], [place]. tel:[phone] Referring Provider: Royer Calhoun, [address] [facility] [address], [place], [facility]. tel:[phone] [place] [address], [id number], [place] tel:[phone] [place] No Information 7 Muehl Magdy. [address] [place] [address], [address], [place], [facility], [place]. tel:[phone] Referring Provider: Royer Calhoun, [facility] [address], [place], [address]. tel:[phone] [place] [address], [id number], [place] tel:[phone] [place] CervicalgiaPai n in thoracic spineSegmental and somatic dysfunction of cervical region 7 Muehl Magdy. [address] [place] [address], [address], [address], [place]. tel:[phone] Referring Provider: Royer Calhoun, [address] [facility] [address], [place], [address]. tel:[phone] Family History Family Member Type Diagnosis Age At Onset No Information Payers Payer name Insurance type Covered constitution party ID Authoriza tion(s) [employer] SP [id number] Social History Type Description Quantity Date Captured [...]
== END 2024-10-25 01:49 | disposition home or self-care (01) ==
LOC: ANHED 01:25
PROVIDERS: Emergency Provider Physician Assistant; PCP Internal Medicine
DX: H60.502 Unspecified acute noninfective otitis externa, left ear (principal); F17.210 Nicotine dependence, cigarettes, uncomplicated
CPT/HCPCS: 99283

== ENCOUNTER 2024-12-05 02:07 | Day surgery (SDC) | payer OTHER, SELFPAY ==
[2024-11-20 09:04] VITALS: BMI 30.8
--- OUTSIDE RECORDS SUMMARY | 2024-12-05 02:10 | XMS_ITS | Continuity of Care Document ---
Author Organization [facility] Address [address] [place] [address] Phone Care Team Providers Care Organ Installer Name Role Phone Magdy Clarke Unavailable Unavailable [...] Date Provider Providers Copied on Encounter [facility], [address], [id number], tel:[phone] [place] No Information 7 Bryce Curran. [address], [address], [place], [address], [place]. tel: [phone] Referring Provider: Royer Calhoun, [address], [place], [address]. tel:[phone] [facility], [address], [id number], tel:[phone] [place] No Information 7 Muehl Magdy. [address], [address], [place], [address], [place]. tel:[phone] Referring Provider: Royer Calhoun, [address], [place], [place], [facility]. [phone] [place] [address], [id number], [place] tel:[phone] [place] No Information 7 Muehl Magdy. [address] [place] [address], [address], [address], [place]. tel:[phone] Referring Provider: Royer Calhoun, [address], [place], [facility]. tel:[phone] [place] [address], [id number], [place] tel:[phone] [place] No Information 7 Muehl Magdy. [address] [place] [address], [address], [place], [facility], [place]. tel:[phone] Referring Provider: Royer Calhoun, [facility] [address], [place], [address]. tel:[phone] [place] [address], [id number], [place] tel:[phone] [place] CervicalgiaPai n in thoracic spineSegmental and somatic dysfunction of cervical region 7 Muehl Magdy. [address] [place] [address], [address], [place], [address], [place]. tel:[phone] Referring Provider: Royer Calhoun, [address] [facility] [address], [address]. tel:[phone] Family History Family Member Type Diagnosis Age At Onset No Information Payers Payer name Insurance type Covered constitution party ID Authoriza tion(s) [employer] SP [id number] Social History Type Description Quantity Date Captured [...]
[2024-12-05 12:14] VITALS: BP 146/105; PULSE 91; RESP 18; TEMP 37.2; O2SAT 97
[2024-12-05] MEDS: LACTATED RINGERS 1,000 ML 150 ML IV CONT (12:40)
--- NOTE | 2024-12-05 14:00 | WPDANESEPPF ---
Anes - Initial Pre Proc Eval Procedure: Operation Date: 12/05/24 13:30 Proposed Procedures p Colonoscopy - Terrell Ríos MD Date/Time: 12/05/24 14:00 Surgeon: Terrell Ríos MD Pre Op Diagnosis: diverticulitis of intestine unspecified Patient Data Age: 38 Gender: M Height: 1.88 m Weight: 120 kg Last Vital Signs Temp 98.9 F 12/05/24 12:14 Pulse 91 12/05/24 12:14 Resp 18 12/05/24 12:14 BP 146/105 H 12/05/24 12:14 Pulse Ox 97 12/05/24 12:14 O2 Del Method Room Air 12/05/24 12:14 Allergies Allergy/AdvReac Type Severity Reaction Status Date / Time No Known Allergies Allergy Verified 12/05/24 12:12 Home Medications ?Medication ?Instructions ?Recorded ?Confirmed ?Type acetaminophen 325 mg capsule 325 mg PO Q6H PRN pain 11/12/19 12/05/24 History (Tylenol) ibuprofen 200 mg tablet (Advil) 200 mg PO Q6H PRN pain 11/12/19 12/05/24 History Patient hx anesthesia problems: none Family hx anesthesia problems: none Results Review: All pre-operative results and documents have been reviewed as part of the pre-operative evaluation. [facility] Past Medical History Medical History Upper respiratory infection Broken arm Broken legs Chronic pain Hypertriglyceridemia Family History Family History Mother Patient's mother is in good health Father Patient's father is in good health Social History Social History Smoking packs per day: 1 Smoking cigarettes per day: 20.0 Smoking status: Current every day smoker Second hand tobacco smoke exposure: No Alcohol intake: never Substance use: never Do You Feel Safe in your Home?: Yes Lack of Transportation: No Lack of Food: Never True Current Housing: I Have Housing Concerned About Future Housing: No Difficulty Paying Gas/Electric Bills: No Difficulty Paying for Meds: No Currently Unemployed: No Education: Trade/Vocational Certificate Difficulty w/ Childcare or Family Care: No Spiritual care concerns: No Anes - Eval Final PreProcedure Day of Procedure 12/05/24 14:00 Patient weight: normal Lungs: normal air movement Airway: Mallampati scale class II Neurological: alert and oriented Last oral intake: >/= 8 hours ASA classification: II Emergent: no Anesthetic plan: proceed Anesthesia type and monitoring: general GIVS and standard monitoring Results Review: All pre-operative results and documents have been reviewed as part of the pre-operative evaluation. Pt ex smoker, quit approx 2022. Pt vapes daily, vaped this am. Informed Consent: The patient's anesthetic plan and its attendant risks and benefits were discussed with the patient/family/POA. Questions were solicited and answers provided to the satisfaction of the patient/family/POA.
--- NOTE | 2024-12-05 14:09 | PM.IMHP ---
H&P: HPI History of Present Illness Date/Time: 12/05/24 14:09 Chief Complaint: History of recent diverticulitis Narrative: the patient was admitted to the hospital 2 months ago for an episode of acute diverticulitis, being hospitalized for 4 days. He completed 14 days of antibiotic course and is currently asymptomatic from a GI standpoint. He never had a colonoscopy and is here for his 1st one. Review of Systems Review of Systems: All systems reviewed & are unremarkable except as noted in HPI and below PMFSH Past Medical History Medical History Upper respiratory infection Broken arm Broken legs Chronic pain Hypertriglyceridemia Family History Family History Mother Patient's mother is in good health Father Patient's father is in good health Social History Social History Smoking packs per day: 1 Smoking cigarettes per day: 20.0 Smoking status: Current every day smoker Second hand tobacco smoke exposure: No Alcohol intake: never Substance use: never Do You Feel Safe in your Home?: Yes Lack of Transportation: No Lack of Food: Never True Current Housing: I Have Housing Concerned About Future Housing: No Difficulty Paying Gas/Electric Bills: No Difficulty Paying for Meds: No Currently Unemployed: No Education: Trade/Vocational Certificate Difficulty w/ Childcare or Family Care: No Spiritual care concerns: No Meds Home Medications and Allergies Home Medications ?Medication ?Instructions ?Recorded ?Confirmed ?Type acetaminophen 325 mg capsule 325 mg PO Q6H PRN pain 11/12/19 12/05/24 History (Tylenol) ibuprofen 200 mg tablet (Advil) 200 mg PO Q6H PRN pain 11/12/19 12/05/24 History Allergies Allergy/AdvReac Type Severity Reaction Status Date / Time No Known Allergies Allergy Verified 12/05/24 12:12 Vital Signs Vital Signs - 24 hr 12/05/24 12:14 Temperature 98.9 F Pulse Rate 91 Respiratory Rate 18 Blood Pressure 146/105 H Pulse Oximetry 97 Oxygen Delivery Room Air Exam Const: General: cooperative and healthy appearing Resp: Effort & Inspection: normal respiratory effort and able to speak in complete sentences Auscultation: clear to auscultation bilaterally Cardio: Rate: regular rate Rhythm: regular rhythm GI: Inspection: normal to inspection GI Palp: No No hepatosplenomegaly present Auscultation: normal bowel sounds Rectal Exam: deferred Skin: General skin exam: normal color Psych: Appearance: grossly normal Mental Status: mental status grossly normal Assessment and Plan Assessment and plan (1) Acute diverticulitis: Code(s): K57.92 - Diverticulitis of intestine, part unspecified, without perforation or abscess without bleeding Status: Acute Assessment and Plan: The patient is deemed a good candidate for the procedure. Consent signed. Will proceed.
[2024-12-05 14:35] VITALS: BP 128/92; PULSE 95; RESP 21; O2SAT 95
[2024-12-05 14:45] VITALS: BP 141/99; PULSE 97; RESP 20; O2SAT 97
[2024-12-05 14:55] VITALS: BP 140/95; PULSE 97; RESP 20; O2SAT 97
== END 2024-12-05 15:00 | disposition home or self-care (01) ==
PROVIDERS: PCP Internal Medicine; Referring Provider Clinical Nurse Specialist; Visit Provider Internal Medicine Gastroenterology
PROC: 0DJD8ZZ Inspection of Lower Intestinal Tract, Via Natural or Artificial Opening Endoscopic (ICD-10-PCS; CPT 45378; principal; 2024-12-05 13:30)
DX: Z09 Encounter for follow-up examination after completed treatment for conditions other than malignant neoplasm (principal); K57.30 Diverticulosis of large intestine without perforation or abscess without bleeding; K63.5 Polyp of colon; Z87.19 Personal history of other diseases of the digestive system; F17.210 Nicotine dependence, cigarettes, uncomplicated
CPT/HCPCS: 45385; 88305; J2003; J2704; J7120